=== PATIENT | male | born 1955 | race American Indian/Alaskan Native ===

== ENCOUNTER 2017-12-11 14:22 | Emergency (ER) | payer MEDICARE ==
[2017-12-11 14:25] VITALS: BP 124/59; PULSE 102; RESP 20; TEMP 99; O2SAT 100
--- NOTE | 2017-12-11 16:44 | ED PDOC ---
HPI: General Adult Time Seen by Provider: 12/11/17 15:55 Chief Complaint (Nursing): Dizziness/Lightheaded Chief Complaint (Provider): Medical evaluation History Per: Patient Additional Complaint(s): 62yo male, comes to ER stating he has no medical complaints. Patient is requesting water to take his medication with, and wants the lights in his room turned off so he can sleep. Patient admits he was just discharged from [facility]. Contrary to triage note, patient denies any dizziness and offers no medical complaints. Past Medical History Reviewed: Historical Data, Nursing Documentation, Vital Signs Vital Signs: Last Vital Signs Temp 99 F 12/11/17 14:24 Pulse 102 H 12/11/17 14:24 Resp 20 12/11/17 14:24 BP 124/59 L 12/11/17 14:24 Pulse Ox 100 12/11/17 17:20 - Medical History PMH: HTN, Hypercholesterolemia - Surgical History Surgical History: No Surg Hx - Family History Family History: States: No Known Family Hx - Immunization History Hx Tetanus Toxoid Vaccination: No - Home Medications Home Medications: Ambulatory Orders Medication Instructions Recorded Aspirin 81 mg PO DAILY 12/09/17 Lisinopril/Hydrochlorothiazide 1 tab PO DAILY 12/09/17 [Lisinopril-Hctz 20-25 mg Tab] Meclizine [Meclizine*] 1 tab PO Q8 12/09/17 Simvastatin 20 mg PO DAILY 12/09/17 Tamsulosin [Flomax] 0.4 mg PO DAILY 12/09/17 - Allergies Allergies/Adverse Reactions: Allergies Allergy/AdvReac Type Severity Reaction Status Date / Time No Known Allergies Allergy Verified 12/12/17 22:08 Review of Systems ROS Statement: Except As Marked, All Systems Reviewed And Found Negative Physical Exam - Reviewed Nursing Documentation Reviewed: Yes Vital Signs Reviewed: Yes - Physical Exam Appears: Positive for: No Acute Distress Head Exam: Positive for: ATRAUMATIC, NORMAL INSPECTION, NORMOCEPHALIC Skin: Positive for: Normal Color Eye Exam: Positive for: Normal appearance Neck: Positive for: Supple Cardiovascular/Chest: Positive for: Regular Rate, Rhythm Respiratory: Positive for: Normal Breath Sounds Extremity: Positive for: Normal ROM Neurologic/Psych: Positive for: Alert, Oriented. Negative for: Motor/Sensory Deficits - ECG O2 Sat by Pulse Oximetry: 100 (RA) Pulse Ox Interpretation: Normal Medical Decision Making Medical Decision Making: Impression: Medical evaluation Plan: Medical exam is normal and aptient currently has no medical conditions which need further evaluation or management in ER. Patient's prior visit reviewed and he was seen at [facility] 2 days ago where he was reported to be "looking for a place to stay." Per prior chart, patient also frequents [facility] [place] bed seeking behavior. Patient given food tray while in ER. Time: 1719 Patient reports he finished his food and is "content and satisfied." On reassessment, patient remains alert and oriented x 3 and is in no acute distress ; he offers no medical complaints. Scribe Attestation: Documented by Chelsey Salvador, acting as a scribe for Nat Weeks MD. Provider Scribe Attestation: All medical record entries made by the Scribe were at my direction and personally dictated by me. I have reviewed the chart and agree that the record accurately reflects my personal performance of the history, physical exam, medical decision making, and the department course for this patient. I have also personally directed, reviewed, and agree with the discharge instructions and disposition. Disposition - Clinical Impression Clinical Impression: Dizziness, Homeless - Patient ED Disposition Is Patient to be Admitted: No Counseled Patient/Family Regarding: Studies Performed, Diagnosis, Need For Followup - Disposition Referrals: [facility] [Outside] Disposition: Routine/Home Disposition Time: 16:30 Condition: GOOD Additional Instructions: GERALDINE RADER, thank you for letting us take care of you today. Your provider was Nat Weeks MD and you were treated for DIZZINESS. The emergency medical care you received today was directed at your acute symptoms. If you were prescribed any medication, please fill it and take as directed. It may take several days for your symptoms to resolve. Return to the Emergency Department if your symptoms worsen, do not improve, or if you have any other problems. Please contact your doctor or call one of the physicians/clinics you have been referred to that are listed on the Patient Visit Information form that is included in your discharge packet. Bring any paperwork you were given at discharge with you along with any medications you are taking to your follow up visit. Our treatment cannot replace ongoing medical care by a primary care provider outside of the emergency department. Thank you for allowing the [facility] team to be part of your care today. If you had an X-Ray or CT scan: A Radiologist will review the ED reading if any change in treatment is needed we will contact you. If you had a blood, urine, or wound culture: It will take several days for the results, if any change in treatment is needed we will contact you. If you had an STI test: It will take 48 hours for the results. Please call after 1 week if you have not heard back.
== END 2017-12-11 18:02 | disposition home or self-care (01) ==
LOC: H.ER 14:22
DX: R42 Dizziness and giddiness (principal); Z59.0 Homelessness; E78.00 Pure hypercholesterolemia, unspecified; I10 Essential (primary) hypertension

== ENCOUNTER 2017-12-12 22:04 | Emergency (ER) | payer MEDICARE ==
[2017-12-12 22:10] VITALS: BP 121/61; PULSE 84; RESP 18; TEMP 98.1; O2SAT 100
--- NOTE | 2017-12-12 22:49 | ED PDOC ---
Lower Extremity Pain/Injury Time Seen by Provider: 12/12/17 22:18 Chief Complaint (Nursing): Lower Extremity Problem/Injury Chief Complaint (Provider): Malingering History Per: Patient History/Exam Limitations: no limitations Additional Complaint(s): 62 year old male presents to the ED looking for somewhere to sleep. He told triage that he has chronic leg pain, however when asked about it in the room, he states they are not bothering him anymore. As review of previous charts, he was seen in [facility] and [facility] yesterday for malingering as well. At this time, he has no complaints and is requesting for the lights to be turned off so he can sleep. PMD: none provided Past Medical History Reviewed: Historical Data, Nursing Documentation, Vital Signs Vital Signs: Last Vital Signs Temp 98.1 F 12/12/17 22:08 Pulse 84 12/12/17 22:08 Resp 18 12/12/17 22:08 BP 121/61 12/12/17 22:08 Pulse Ox 100 12/12/17 22:08 - Medical History PMH: HTN, Hypercholesterolemia - Family History Family History: States: Unknown Family Hx - Living Arrangements Living Arrangements: Other (homeless) - Home Medications Home Medications: Ambulatory Orders Medication Instructions Recorded Aspirin 81 mg PO DAILY 12/09/17 Lisinopril/Hydrochlorothiazide 1 tab PO DAILY 12/09/17 [Lisinopril-Hctz 20-25 mg Tab] Meclizine [Meclizine*] 1 tab PO Q8 12/09/17 Simvastatin 20 mg PO DAILY 12/09/17 Tamsulosin [Flomax] 0.4 mg PO DAILY 12/09/17 - Allergies Allergies/Adverse Reactions: Allergies Allergy/AdvReac Type Severity Reaction Status Date / Time No Known Allergies Allergy Verified 12/13/17 16:07 Review of Systems ROS Statement: Except As Marked, All Systems Reviewed And Found Negative Musculoskeletal: Negative for: Leg Pain Physical Exam - Reviewed Nursing Documentation Reviewed: Yes Vital Signs Reviewed: Yes - Physical Exam Comments: GENERAL APPEARANCE: Patient is awake, alert, oriented x 3, in no acute distress. NECK: Supple, FROM ENT: Mucus membranes moist. Airway patent, (-)stridor. CHEST AND RESPIRATORY: (-) rales, (-) rhonchi, (-) wheezes; breath sounds equal bilaterally. HEART AND CARDIOVASCULAR: (-) irregularity NEURO AND PSYCH: Mental status as above. Cranial nerves grossly intact. Gait: steady. Speech: clear. - ECG O2 Sat by Pulse Oximetry: 100 (RA) Pulse Ox Interpretation: Normal Medical Decision Making Medical Decision Making: Time: 2246 Initial Impression: malingering Initial Plan: --At this time, patient is stable for discharge as and outpatient to follow up at the [facility]. He requires no emergent medical care at this time. Return to the emergency room at any time for any new or worsening symptoms. I have given the patient opportunity to ask any additional questions. Scribe Attestation: Documented by Alyson Herrera, acting as a scribe for Annamarie Lees PA-C. Provider Scribe Attestation: All medical record entries made by the Scribe were at my direction and personally dictated by me. I have reviewed the chart and agree that the record accurately reflects my personal performance of the history, physical exam, medical decision making, and the department course for this patient. I have also personally directed, reviewed, and agree with the discharge instructions and disposition. Disposition - Clinical Impression Clinical Impression: Malingering - Patient ED Disposition Is Patient to be Admitted: No Counseled Patient/Family Regarding: Studies Performed, Diagnosis, Need For Followup - Disposition Referrals: [facility] [Outside] Disposition: Routine/Home Disposition Time: 22:47 Condition: STABLE Additional Instructions: The emergency medical care you received today was directed towards the acute presenting symptoms. If you were prescribed any medication, please fill it and give as directed. It may take several days for your symptoms to resolve. Return to the Emergency Department at any time if symptoms worsen, do not improve, or if any other problems arise. Please contact your doctor in 2 days for re-evaluation and follow up / or call one of the physicians/clinics you have been referred to that are listed on the Patient Visit Information form that is included in your discharge packet. Bring any paperwork you were given at discharge with you along with any medications to your follow up visit. Our treatment cannot replace ongoing medical care by a primary care provider (PCP) outside of the emergency department. Instructions: General (DC) Forms: [employer] (Tuvaluan) Print Language: KAZAKH - POA Present On Arrival: None
== END 2017-12-12 23:00 | disposition home or self-care (01) ==
LOC: H.ER 22:04
DX: Z76.5 Malingerer [conscious simulation] (principal)

== ENCOUNTER → 2018-01-30 | Emergency (ER) | payer MEDICARE ==
[2018-01-30 19:01] VITALS: BMI 23.7
[2018-01-30 19:11] VITALS: BP 120/95; PULSE 107; RESP 18; TEMP 98; O2SAT 98
--- NOTE | 2018-01-30 19:39 | ED PDOC ---
Lower Extremity Pain/Injury Time Seen by Provider: 01/30/18 19:33 Chief Complaint (Nursing): Lower Extremity Problem/Injury Past Medical History Vital Signs: Last Vital Signs Temp 98 F 01/30/18 19:08 Pulse 107 H 01/30/18 19:08 Resp 18 01/30/18 19:08 BP 120/95 H 01/30/18 19:08 Pulse Ox 98 01/30/18 19:08 - Medical History PMH: Anxiety, Arthritis, Bipolar Disorder, Dementia, HTN, Hypercholesterolemia Denies: Diabetes, Hepatitis, HIV, Seizures, Sexually Transmitted Disease - Family History Family History: States: Unknown Family Hx - Immunization History Hx Tetanus Toxoid Vaccination: No Hx Influenza Vaccination: No Hx Pneumococcal Vaccination: No - Home Medications Home Medications: Ambulatory Orders Medication Instructions Recorded Aspirin [Ecotrin] 81 mg PO DAILY 12/25/17 Cilostazol [Pletal] 100 mg PO BID 12/25/17 Lisinopril/Hydrochlorothiazide 1 each PO DAILY 12/25/17 [Lisinopril-Hctz 20-25 mg Tab] Meclizine [Meclizine*] 25 mg PO Q6 #30 tab 12/25/17 risperiDONE [RisperDAL] 0.5 mg PO DAILY 12/25/17 Lidocaine 5% [Lidoderm] 1 ea TD DAILY PRN #12 patch 12/26/17 Ibuprofen [Motrin] 600 mg PO Q6 5 Days #20 tab 01/27/18 - Allergies Allergies/Adverse Reactions: Allergies Allergy/AdvReac Type Severity Reaction Status Date / Time No Known Allergies Allergy Verified 01/30/18 19:07 - ECG O2 Sat by Pulse Oximetry: 98 Disposition - Clinical Impression Clinical Impression: Homeless single person, Malingering, Chronic pain of right hip - Disposition Condition: STABLE Instructions: Chronic Pain Forms: [employer] (Indonesian)
--- NOTE | 2018-01-30 19:54 | ED PDOC ---
Lower Extremity Pain/Injury Time Seen by Provider: 01/30/18 19:10 Chief Complaint (Nursing): Lower Extremity Problem/Injury Chief Complaint (Provider): Lower Extremity Problem/Injury History Per: Patient History/Exam Limitations: no limitations Onset/Duration Of Symptoms: Days (1x) Current Symptoms Are (Timing): Still Present Severity: Moderate Additional Complaint(s): 62 year old male, well known to the ED, with a past medical history of chronic right thigh pain presents to the ED with complaints right thigh pain that started today. Patient has been seen in the ED multiple times for this complaint. Patient denies any new pain or trauma to the area. Patient states he needs to lay down to take him pain medication (cilostazol, for chronic pain). PMD: None provided Past Medical History Reviewed: Historical Data, Nursing Documentation, Vital Signs Vital Signs: Last Vital Signs Temp 98 F 01/30/18 19:08 Pulse 107 H 01/30/18 19:08 Resp 18 01/30/18 19:08 BP 120/95 H 01/30/18 19:08 Pulse Ox 98 01/30/18 19:08 - Medical History PMH: Anxiety, Arthritis, Bipolar Disorder, Dementia, HTN, Hypercholesterolemia Denies: Diabetes, Hepatitis, HIV, Seizures, Sexually Transmitted Disease - Family History Family History: States: Unknown Family Hx - Social History Alcohol: None Drugs: Denies - Immunization History Hx Tetanus Toxoid Vaccination: No Hx Influenza Vaccination: No Hx Pneumococcal Vaccination: No - Home Medications Home Medications: Ambulatory Orders Medication Instructions Recorded Aspirin [Ecotrin] 81 mg PO DAILY 12/25/17 Cilostazol [Pletal] 100 mg PO BID 12/25/17 Lisinopril/Hydrochlorothiazide 1 each PO DAILY 12/25/17 [Lisinopril-Hctz 20-25 mg Tab] Meclizine [Meclizine*] 25 mg PO Q6 #30 tab 12/25/17 risperiDONE [RisperDAL] 0.5 mg PO DAILY 12/25/17 Lidocaine 5% [Lidoderm] 1 ea TD DAILY PRN #12 patch 12/26/17 Ibuprofen [Motrin] 600 mg PO Q6 5 Days #20 tab 01/27/18 - Allergies Allergies/Adverse Reactions: Allergies Allergy/AdvReac Type Severity Reaction Status Date / Time No Known Allergies Allergy Verified 01/30/18 19:07 Review of Systems ROS Statement: Except As Marked, All Systems Reviewed And Found Negative Musculoskeletal: Positive for: Leg Pain (right thigh pain) Physical Exam - Reviewed Nursing Documentation Reviewed: Yes Vital Signs Reviewed: Yes - Physical Exam Appears: Positive for: Well, Non-toxic, No Acute Distress Head Exam: Positive for: ATRAUMATIC, NORMOCEPHALIC Skin: Positive for: Normal Color Cardiovascular/Chest: Positive for: Regular Rate, Rhythm Respiratory: Positive for: Normal Breath Sounds Pulses-Dorsalis Pedis (L): 2+ Pulses-Dorsalis Pedis (R): 2+ Extremity: Positive for: Normal ROM, Other (DP pulses in tact) Neurologic/Psych: Positive for: Alert, Oriented (3x), Gait (patient was seen ambulating with steady gait) - ECG O2 Sat by Pulse Oximetry: 98 (RA) Pulse Ox Interpretation: Normal Medical Decision Making Medical Decision Makin:10 Initial impression: 62 year old male with right upper leg pain Plan: * reevaluation 19:20 Patient is sleeping comfortably, in no acute distress. Patient is declining additional pain medications in ED. Scribe Attestation: Documented by Annamarie Tian, acting as a scribe for Miladys Ziegler PA-C. Provider Scribe Attestation: All medical record entries made by the Scribe were at my direction and personally dictated by me. I have reviewed the chart and agree that the record accurately reflects my personal performance of the history, physical exam, medical decision making, and the department course for this patient. I have also personally directed, reviewed, and agree with the discharge instructions and disposition. Disposition - Clinical Impression Clinical Impression: Homeless single person, Malingering, Chronic pain of right hip - Patient ED Disposition Is Patient to be Admitted: No - Disposition Disposition: Routine/Home Disposition Time: 19:37 Condition: STABLE Instructions: Chronic Pain Forms: [employer] (Venezuelan)
== END | disposition home or self-care (01) ==
LOC: H.ER 19:01
DX: Z76.5 Malingerer [conscious simulation] (principal); Z59.0 Homelessness; G89.29 Other chronic pain

== ENCOUNTER 2018-01-31 00:56 | Emergency (ER) | payer MEDICARE ==
[2018-01-31 00:56] VITALS: BMI 32.5
[2018-01-31 02:34] VITALS: RESP 16
--- NOTE | 2018-01-31 05:21 | ED PDOC ---
HPI: General Adult Time Seen by Provider: 01/31/18 04:57 Chief Complaint (Nursing): Medical Clearance Chief Complaint (Provider): Chronic Pain History Per: Patient History/Exam Limitations: no limitations Onset/Duration Of Symptoms: Days Recently: Seen In ED Additional Complaint(s): Patient is a 62 year old homeless male who presents to ED for evaluation of chronic pain to his hips and knees. Patient reports that the cold weather outside worsens his symptoms and that "he needs somewhere to sleep". Patient is well known to ED for frequent visits and bed seeking behavior. Patient was evaluated in this ED earlier today for similar and discharged. Past Medical History Reviewed: Historical Data, Nursing Documentation, Vital Signs Vital Signs: Last Vital Signs Temp 98.9 F 01/31/18 02:20 Pulse 89 01/31/18 02:20 Resp 16 01/31/18 02:20 BP 130/90 01/31/18 02:20 Pulse Ox 99 01/31/18 02:20 - Medical History PMH: Anxiety, Arthritis, Bipolar Disorder, Dementia, HTN, Hypercholesterolemia - Family History Family History: States: Unknown Family Hx - Living Arrangements Living Arrangements: Other (homeless) - Home Medications Home Medications: Ambulatory Orders Medication Instructions Recorded Aspirin [Ecotrin] 81 mg PO DAILY 12/25/17 Cilostazol [Pletal] 100 mg PO BID 12/25/17 Lisinopril/Hydrochlorothiazide 1 each PO DAILY 12/25/17 [Lisinopril-Hctz 20-25 mg Tab] RX: Meclizine [Meclizine*] 25 mg PO Q6 #30 tab 12/25/17 risperiDONE [RisperDAL] 0.5 mg PO DAILY 12/25/17 Lidocaine 5% [Lidoderm] 1 ea TD DAILY PRN #12 patch 12/26/17 Ibuprofen [Motrin] 600 mg PO Q6 5 Days #20 tab 01/27/18 Ibuprofen [Motrin] 1 tab PO Q8 PRN #20 tab 01/31/18 - Allergies Allergies/Adverse Reactions: Allergies Allergy/AdvReac Type Severity Reaction Status Date / Time No Known Allergies Allergy Verified 01/31/18 15:53 Review of Systems ROS Statement: Except As Marked, All Systems Reviewed And Found Negative Musculoskeletal: Positive for: Other (chronic pain) Physical Exam - Reviewed Nursing Documentation Reviewed: Yes Vital Signs Reviewed: Yes - Physical Exam Appears: Positive for: Non-toxic, No Acute Distress Head Exam: Positive for: ATRAUMATIC, NORMOCEPHALIC Skin: Positive for: Normal Color Eye Exam: Positive for: Normal appearance ENT: Positive for: Other (Airway patent, (-) stridor. Mucus membranes moist.) Neck: Positive for: Painless ROM, Supple Cardiovascular/Chest: Positive for: Regular Rate, Rhythm Respiratory: Positive for: Normal Breath Sounds Gastrointestinal/Abdominal: Positive for: Soft. Negative for: Tenderness, Distended, Guarding Extremity: Positive for: Normal ROM. Negative for: Tenderness, Pedal Edema, Calf Tenderness, Deformity, Swelling Neurologic/Psych: Positive for: Alert, Oriented (x3), Gait (steady in ED). Negative for: Motor/Sensory Deficits, Aphasia, Facial Droop - ECG O2 Sat by Pulse Oximetry: 99 (RA) Pulse Ox Interpretation: Normal Medical Decision Making Medical Decision Makin Initial Impression: Chronic Pain, Malingering Plan: Patient is stable for discharge as no additional treatment or testing is required in the ED at this time. Lab /Diagnostic results d/w the patient in great detail. Diagnosis of chronic pain, malingering d/w the patient. Based on history, exam and diagnostic results, plan will be for outpatient follow up with clinic. Patient instructed to follow-up with pmd / referral provided / the clinic in 1- 2 days without fail. Return to the emergency room at any time for any new or worsening symptoms. Patient states he fully agrees with and understands discharge instructions. States that he agrees with the plan and disposition. Verbalized and repeated discharge instructions and plan. I have given the patient opportunity to ask any additional questions. Disposition - Clinical Impression Clinical Impression: Chronic pain, Malingering - Patient ED Disposition Is Patient to be Admitted: No Counseled Patient/Family Regarding: Studies Performed, Diagnosis, Need For Followup - Disposition Referrals: [facility] [Outside] Disposition: Routine/Home Disposition Time: 05:20 Condition: FAIR Additional Instructions: The emergency medical care you received today was directed towards the acute presenting symptoms. If you were prescribed any medication, please fill it and give as directed. It may take several days for your symptoms to resolve. Return to the Emergency Department at any time if symptoms worsen, do not improve, or if any other problems arise. Please contact your doctor in 2 days for re-evaluation and follow up / or call one of the physicians/clinics you have been referred to that are listed on the Patient Visit Information form that is included in your discharge packet. Bring any paperwork you were given at discharge with you along with any medications to your follow up visit. Our treatment cannot replace ongoing medical care by a primary care provider (PCP) outside of the emergency department. Instructions: Chronic Pain, General (DC) Forms: [employer] (Sinhala) Print Language: GUATEMALAN - POA Present On Arrival: None
[2018-01-31 07:33] VITALS: BP 122/84; PULSE 81; TEMP 98.4
[2018-02-01 04:43] VITALS: O2SAT 99
== END 2018-01-31 06:20 | disposition home or self-care (01) ==
LOC: H.ER 00:56
DX: G89.29 Other chronic pain (principal); Z76.5 Malingerer [conscious simulation]; Z86.59 Personal history of other mental and behavioral disorders; F03.90 Unspecified dementia, unspecified severity, without behavioral disturbance, psychotic disturbance, mood disturbance, and anxiety; I10 Essential (primary) hypertension; Z59.0 Homelessness; Z79.82 Long term (current) use of aspirin

== ENCOUNTER 2018-02-15 20:41 | Emergency (ER) | payer MEDICARE ==
[2018-02-15 20:42] VITALS: BMI 27.3
[2018-02-15 20:53] VITALS: BP 159/86; PULSE 88; RESP 16; TEMP 97.2; O2SAT 96
--- NOTE | 2018-02-15 21:04 | ED PDOC ---
Lower Extremity Pain/Injury Time Seen by Provider: 02/15/18 21:01 Chief Complaint (Nursing): Lower Extremity Problem/Injury Chief Complaint (Provider): Lower Extremity Problem/Injury History Per: Patient History/Exam Limitations: other (uncooperative) Onset/Duration Of Symptoms: Other (chronic ) Additional Complaint(s): 62 year old homeless male with a history of chronic right sided leg pain and back pain presents to the ED via EMS c/o right leg pain and asking for food. He is well known to this ED as well as [facility]. Pt was seen 4 times yesterday with the same complaints. As per EMS, he was picked up outside of the [facility] ED and requested to come here. Patient is also wearing a hospital bracelet from [facility] with today's date. Patient states that leg pain is unchanged from chronic symptoms and is requesting to lie down in a bed and eat some food. Denies fevers, chills, abdominal pain, chest pain, SOB, cough. HPI and ROS is limited secondary to the uncooperative nature of the patient. PMD: none provided Past Medical History Reviewed: Historical Data, Nursing Documentation, Vital Signs Vital Signs: Last Vital Signs Temp 97.2 F L 02/15/18 20:47 Pulse 88 02/15/18 20:47 Resp 16 02/15/18 20:47 BP 159/86 H 02/15/18 20:47 Pulse Ox 96 02/15/18 20:47 - Medical History PMH: Anxiety, Arthritis, Benign Prostatic Hyperplasia, Bipolar Disorder, Dementia, HTN, Hypercholesterolemia Denies: Diabetes, Hepatitis, HIV, Chronic Kidney Disease, Seizures, Sexually Transmitted Disease - Surgical History Surgical History: No Surg Hx - Family History Family History: States: Unknown Family Hx - Immunization History Hx Tetanus Toxoid Vaccination: No Hx Influenza Vaccination: No Hx Pneumococcal Vaccination: No - Home Medications Home Medications: Ambulatory Orders Medication Instructions Recorded Aspirin [Ecotrin] 81 mg PO DAILY 12/25/17 Cilostazol [Pletal] 100 mg PO BID 12/25/17 Lisinopril/Hydrochlorothiazide 1 each PO DAILY 12/25/17 [Lisinopril-Hctz 20-25 mg Tab] Meclizine [Meclizine*] 25 mg PO Q6 #30 tab 12/25/17 risperiDONE [RisperDAL] 0.5 mg PO DAILY 12/25/17 Lidocaine 5% [Lidoderm] 1 ea TD DAILY PRN #12 patch 12/26/17 Ibuprofen [Motrin] 600 mg PO Q6 5 Days #20 tab 01/27/18 Naproxen [Naprosyn] 500 mg PO Q12H PRN #30 tablet 02/05/18 Acetaminophen [Tylenol] 325 mg PO QID 5 Days #20 capsule 02/07/18 - Allergies Allergies/Adverse Reactions: Allergies Allergy/AdvReac Type Severity Reaction Status Date / Time No Known Allergies Allergy Verified 02/15/18 15:38 Review of Systems ROS Statement: Except As Marked, All Systems Reviewed And Found Negative Musculoskeletal: Positive for: Leg Pain (chronic right leg pain) Physical Exam - Reviewed Nursing Documentation Reviewed: Yes Vital Signs Reviewed: Yes - Physical Exam Appears: Positive for: Non-toxic, No Acute Distress (unkempt and uncooperative) Head Exam: Positive for: ATRAUMATIC, NORMAL INSPECTION, NORMOCEPHALIC Skin: Positive for: Normal Color, Warm, Dry Eye Exam: Positive for: EOMI, Normal appearance, PERRL Neck: Positive for: Normal, Painless ROM, Supple Cardiovascular/Chest: Positive for: Regular Rate, Rhythm Respiratory: Positive for: CNT, Normal Breath Sounds Pulses-Dorsalis Pedis (L): 2+ Pulses-Dorsalis Pedis (R): 2+ Pulses-Radial (L): 2+ Pulses-Radial (R): 2+ Back: Positive for: Normal Inspection. Negative for: Vertebral Tenderness, Decreased ROM, Muscle Spasm Extremity: Positive for: Normal ROM (x 4), Capillary Refill (<2s), Other (ambulating per baseline). Negative for: Tenderness, Calf Tenderness, Deformity Neurologic/Psych: Positive for: Alert, Oriented, Gait (per baseline). Negative for: Motor/Sensory Deficits - ECG O2 Sat by Pulse Oximetry: 96 (RA) Pulse Ox Interpretation: Normal Medical Decision Making Medical Decision Making: Initial Plan: * Food * Reassess and disposition After eating, patient has no further complaints. Pt remains A&Ox3, ambulating with steady gait per baseline. Pt stable for discharge. Advised to followup with clinic and take home medications as prescribed. Impression: Homeless, Chronic Right Leg Pain Disposition - Clinical Impression Clinical Impression: Homeless single person, Chronic pain of right lower extremity - Patient ED Disposition Is Patient to be Admitted: No - Disposition Referrals: [facility] [Outside] Disposition: Routine/Home Disposition Time: 21:17 Condition: STABLE Additional Instructions: Followup with clinic within 2 days Return to ER for new/worsening symptoms Forms: [employer] (Barbadian)
== END 2018-02-15 21:30 | disposition home or self-care (01) ==
LOC: H.ER 20:41
DX: M79.604 Pain in right leg (principal); Z59.0 Homelessness; E78.00 Pure hypercholesterolemia, unspecified; F03.90 Unspecified dementia, unspecified severity, without behavioral disturbance, psychotic disturbance, mood disturbance, and anxiety; G89.29 Other chronic pain; Z79.82 Long term (current) use of aspirin

== ENCOUNTER 2018-03-23 11:05 | Emergency (ER) | payer MEDICARE, MEDICAID ==
[2018-03-23 11:05] VITALS: BMI 24.4
[2018-03-23 11:10] VITALS: BP 158/89; PULSE 82; RESP 20; TEMP 97.6; O2SAT 100
--- NOTE | 2018-03-23 11:49 | ED PDOC ---
Lower Extremity Pain/Injury Time Seen by Provider: 03/23/18 11:30 Chief Complaint (Nursing): Lower Extremity Problem/Injury Chief Complaint (Provider): Lower Extremity Problem/Injury History Per: Patient, EMS History/Exam Limitations: no limitations Onset/Duration Of Symptoms: Days (x 1) Current Symptoms Are (Timing): Still Present Additional Complaint(s): 62 year old male presents to the ED with left hip and leg pain. Patient is known for multiple visits to this ED and other [facility]. EMR reviews shows that he visited [facility] this morning with the same complaint as well as 6 other visits to [facility] in the last 24 hours. The patrient admits that he walked into the ER. He is refusing to answer questions and is only stating "Can I get food now?" He also requested a urinal which he was then given before asking if he can have food again. Patient walked into the ER steadily with a cane. Denies fall, trauma and fever. PMD: none provided Past Medical History Reviewed: Historical Data, Nursing Documentation, Vital Signs Vital Signs: Last Vital Signs Temp 97.6 F 03/23/18 11:09 Pulse 82 03/23/18 11:09 Resp 20 03/23/18 11:09 BP 158/89 H 03/23/18 11:09 Pulse Ox 100 03/23/18 11:09 - Medical History PMH: Anxiety, Arthritis, Benign Prostatic Hyperplasia, Bipolar Disorder, Dementia, HTN, Hypercholesterolemia Denies: HIV, Chronic Kidney Disease, Seizures, Sexually Transmitted Disease - Surgical History Surgical History: No Surg Hx - Family History Family History: States: Unknown Family Hx - Living Arrangements Living Arrangements: Other (homeless) - Immunization History Hx Tetanus Toxoid Vaccination: No Hx Influenza Vaccination: No Hx Pneumococcal Vaccination: No - Home Medications Home Medications: Ambulatory Orders Medication Instructions Recorded Aspirin [Ecotrin] 81 mg PO DAILY 12/25/17 Cilostazol [Pletal] 100 mg PO Q12 12/25/17 Lisinopril/Hydrochlorothiazide 1 tab PO DAILY 12/25/17 [Lisinopril-Hctz 20-25 mg Tab] risperiDONE [RisperDAL] 0.5 mg PO HS 12/25/17 Naproxen [Naprosyn] 500 mg PO Q12H PRN #30 tablet 02/05/18 Acetaminophen [Tylenol] 325 mg PO QID 5 Days #20 capsule 02/07/18 Simvastatin [Zocor] 20 mg PO HS 02/17/18 Tamsulosin [Flomax] 0.4 mg PO HS 02/17/18 Ibuprofen [Motrin] 400 mg PO Q8 PRN #21 tab 02/20/18 - Allergies Allergies/Adverse Reactions: Allergies Allergy/AdvReac Type Severity Reaction Status Date / Time No Known Allergies Allergy Verified 03/23/18 07:03 Review of Systems ROS Statement: Except As Marked, All Systems Reviewed And Found Negative Musculoskeletal: Positive for: Leg Pain (left leg pain and hip pain) Physical Exam - Reviewed Nursing Documentation Reviewed: Yes Vital Signs Reviewed: Yes - Physical Exam Appears: Positive for: No Acute Distress (appears disheveled) Head Exam: Positive for: ATRAUMATIC, NORMAL INSPECTION, NORMOCEPHALIC Skin: Positive for: Normal Color, Warm, Dry Eye Exam: Positive for: Normal appearance Cardiovascular/Chest: Positive for: Regular Rate, Rhythm. Negative for: Murmur Respiratory: Positive for: Normal Breath Sounds. Negative for: Respiratory Distress Neurologic/Psych: Positive for: Alert, Oriented, Gait (steady). Negative for: Motor/Sensory Deficits - ECG O2 Sat by Pulse Oximetry: 100 (RA) Pulse Ox Interpretation: Normal Medical Decision Making Medical Decision Makin:30 MDM: Patient has chronic arthritis No evidence of trauma or other indication for medical workup He was seen ambulatory on arrival per triage note. Scribe Attestation: Documented by Erica Yaens acting as a scribe for Annamarie Gama MD Provider Scribe Attestation: All medical record entries made by the Scribe were at my direction and personally dictated by me. I have reviewed the chart and agree that the record accurately reflects my personal performance of the history, physical exam, medical decision making, and the department course for this patient. I have also personally directed, reviewed, and agree with the discharge instructions and disposition. Disposition - Clinical Impression Clinical Impression: Chronic hip pain, Malingerer, Homeless - Patient ED Disposition Is Patient to be Admitted: No - Disposition Disposition: Routine/Home Disposition Time: 11:45 Additional Instructions: follow up with primary doctor for fci pain control. Instructions: Chronic Pain, Hip Pain (DC) Forms: [employer] (Bulgarian) Print Language: IRAQI
== END 2018-03-23 13:18 | disposition home or self-care (01) ==
LOC: H.ER 11:05
DX: G89.29 Other chronic pain (principal); M25.552 Pain in left hip; Z76.5 Malingerer [conscious simulation]; Z59.0 Homelessness; Z86.59 Personal history of other mental and behavioral disorders; F03.90 Unspecified dementia, unspecified severity, without behavioral disturbance, psychotic disturbance, mood disturbance, and anxiety; I10 Essential (primary) hypertension; N40.0 Benign prostatic hyperplasia without lower urinary tract symptoms

== ENCOUNTER 2018-03-23 14:03 | Emergency (ER) | payer MEDICARE, MEDICAID ==
[2018-03-23 14:07] VITALS: BMI 27.5
--- NOTE | 2018-03-23 14:10 | ED PDOC ---
HPI: General Adult Time Seen by Provider: 03/23/18 14:05 Chief Complaint (Nursing): Pain, Chronic Chief Complaint (Provider): Chronic Pain History Per: Patient History/Exam Limitations: no limitations Recently: Seen In ED (earlier today at [facility], seen at [facility] 3x yesterday for same complaint.) Additional Complaint(s): 62 year old homeless male well known to the ED staff for malingering presents to the ED with complaints of chronic bilateral leg pain. He was discharged from this ED 1 hour ago for exhibiting bed seeking behavior. Patient ambulates steadily in the ED with a cane. Patient states " I got no where to go, I need a place to lay down. I need food". Patient refused vitals in triage and is uncooperative upon arrival. Past Medical History Reviewed: Historical Data, Nursing Documentation - Medical History PMH: Anxiety, Arthritis, Benign Prostatic Hyperplasia, Bipolar Disorder, Dementia, HTN, Hypercholesterolemia - Surgical History Other surgeries: unknown - Family History Family History: States: Unknown Family Hx - Living Arrangements Living Arrangements: Other (homeless) - Home Medications Home Medications: Ambulatory Orders Medication Instructions Recorded Aspirin [Ecotrin] 81 mg PO DAILY 12/25/17 Cilostazol [Pletal] 100 mg PO Q12 12/25/17 Lisinopril/Hydrochlorothiazide 1 tab PO DAILY 12/25/17 [Lisinopril-Hctz 20-25 mg Tab] risperiDONE [RisperDAL] 0.5 mg PO HS 12/25/17 RX: Naproxen [Naprosyn] 500 mg PO Q12H PRN #30 tablet 02/05/18 Acetaminophen [Tylenol] 325 mg PO QID 5 Days #20 capsule 02/07/18 RX: Simvastatin [Zocor] 20 mg PO HS 02/17/18 Tamsulosin [Flomax] 0.4 mg PO HS 02/17/18 Ibuprofen [Motrin] 400 mg PO Q8 PRN #21 tab 02/20/18 - Allergies Allergies/Adverse Reactions: Allergies Allergy/AdvReac Type Severity Reaction Status Date / Time No Known Allergies Allergy Verified 03/23/18 07:03 Review of Systems ROS Statement: Except As Marked, All Systems Reviewed And Found Negative Musculoskeletal: Positive for: Leg Pain Physical Exam - Reviewed Nursing Documentation Reviewed: Yes Vital Signs Reviewed: No (patient refused vitals) - Physical Exam Appears: Positive for: Non-toxic, No Acute Distress Head Exam: Positive for: ATRAUMATIC, NORMAL INSPECTION, NORMOCEPHALIC Skin: Positive for: Normal Color, Warm, Dry Eye Exam: Positive for: Normal appearance Neck: Positive for: Supple Extremity: Negative for: Calf Tenderness, Deformity Neurologic/Psych: Positive for: Alert, Oriented (x3), Gait (steady in ED with cane). Negative for: Motor/Sensory Deficits, Aphasia, Facial Droop Medical Decision Making Medical Decision Makin Impression: Malingering, Chronic Pain Patient requires no additional treatment or diagnostics in the ED. Based on history, exam and diagnostic results, plan will be for outpatient follow up with clinic. Patient instructed to follow-up with pmd / referral provided / the clinic in 1- 2 days without fail. Return to the emergency room at any time for any new or worsening symptoms. I have given the patient opportunity to ask any additional questions. Scribe Attestation: Documented by Erica Yanes acting as a scribe for Annamarie Lees PA-C Provider Scribe Attestation: All medical record entries made by the Scribe were at my direction and personally dictated by me. I have reviewed the chart and agree that the record accurately reflects my personal performance of the history, physical exam, medical decision making, and the department course for this patient. I have also personally directed, reviewed, and agree with the discharge instructions and disposition. Disposition - Clinical Impression Clinical Impression: Chronic pain, Malingering - Patient ED Disposition Is Patient to be Admitted: No Counseled Patient/Family Regarding: Studies Performed, Diagnosis, Need For Followup - Disposition Referrals: [facility] [Outside] Disposition: Routine/Home Disposition Time: 14:10 Condition: STABLE Additional Instructions: The emergency medical care you received today was directed at your acute symptoms. If you were prescribed any medication, please fill it and take as directed. It may take several days for your symptoms to resolve. Return to the Emergency Department if your symptoms worsen, do not improve, or if you have any other problems. Please contact your doctor in 2 days for re-evaluation and follow up / or call one of the physicians/clinics you have been referred to that are listed on the Patient Visit Information form that is included in your discharge packet. Bring any paperwork you were given at discharge with you along with any medications you are taking to your follow up visit. Our treatment cannot replace ongoing medical care by a primary care provider (PCP) outside of the emergency depart ment. Instructions: Chronic Pain (DC) Forms: [employer] (Estonian) Print Language: UPPER SORBIAN - POA Present On Arrival: None
== END 2018-03-23 14:15 | disposition home or self-care (01) ==
LOC: H.ER 14:03
DX: G89.29 Other chronic pain (principal); Z76.5 Malingerer [conscious simulation]; Z59.0 Homelessness; N40.0 Benign prostatic hyperplasia without lower urinary tract symptoms; I10 Essential (primary) hypertension; Z86.59 Personal history of other mental and behavioral disorders; F03.90 Unspecified dementia, unspecified severity, without behavioral disturbance, psychotic disturbance, mood disturbance, and anxiety

== ENCOUNTER 2018-03-23 14:46 | Emergency (ER) | payer MEDICARE, MEDICAID ==
--- NOTE | 2018-03-23 14:54 | ED PDOC ---
HPI: General Adult Time Seen by Provider: 03/23/18 14:49 Chief Complaint (Nursing): Pain, Chronic Chief Complaint (Provider): Chronic Pain History Per: Patient History/Exam Limitations: no limitations Recently: Seen In ED (([facility], seen at [facility] 3x yesterday for same complaint.)) Additional Complaint(s): 62 year old homeless male well known to the ED staff for malingering presents to the ED with complaints of chronic bilateral leg pain. He was discharged from this ED 1 hour ago, and 30 minutes ago for exhibiting bed seeking behavior. Patient ambulates steadily in the ED with a cane. Patient states " I got no where to go, I need a place to lay down. I need food". Patient refused vitals in triage and is uncooperative upon arrival. Past Medical History Reviewed: Historical Data, Nursing Documentation - Medical History PMH: Anxiety, Arthritis, Benign Prostatic Hyperplasia, Bipolar Disorder, Dementia, HTN, Hypercholesterolemia - Surgical History Other surgeries: unknown - Family History Family History: States: Unknown Family Hx - Living Arrangements Living Arrangements: Other (homeless) - Home Medications Home Medications: Ambulatory Orders Medication Instructions Recorded Aspirin [Ecotrin] 81 mg PO DAILY 12/25/17 Cilostazol [Pletal] 100 mg PO Q12 12/25/17 Lisinopril/Hydrochlorothiazide 1 tab PO DAILY 12/25/17 [Lisinopril-Hctz 20-25 mg Tab] risperiDONE [RisperDAL] 0.5 mg PO HS 12/25/17 Naproxen [Naprosyn] 500 mg PO Q12H PRN #30 tablet 02/05/18 Acetaminophen [Tylenol] 325 mg PO QID 5 Days #20 capsule 02/07/18 Simvastatin [Zocor] 20 mg PO HS 02/17/18 Tamsulosin [Flomax] 0.4 mg PO HS 02/17/18 Ibuprofen [Motrin] 400 mg PO Q8 PRN #21 tab 02/20/18 - Allergies Allergies/Adverse Reactions: Allergies Allergy/AdvReac Type Severity Reaction Status Date / Time No Known Allergies Allergy Verified 03/23/18 07:03 Review of Systems ROS Statement: Except As Marked, All Systems Reviewed And Found Negative Musculoskeletal: Positive for: Other (chronic leg pain) Physical Exam - Reviewed Nursing Documentation Reviewed: Yes Vital Signs Reviewed: No (patient refused) - Physical Exam Comments: Appears: Positive for: Non-toxic, No Acute Distress Head Exam: Positive for: ATRAUMATIC, NORMAL INSPECTION, NORMOCEPHALIC Skin: Positive for: Normal Color, Warm, Dry Eye Exam: Positive for: Normal appearance Neck: Positive for: Supple Extremity: Negative for: Calf Tenderness, Deformity Neurologic/Psych: Positive for: Alert, Oriented (x3), Gait (steady in ED with cane). Negative for: Motor/Sensory Deficits, Aphasia, Facial Droop Medical Decision Making Medical Decision Makin Impression: Malingering, Chronic Pain Patient requires no additional treatment or diagnostics in the ED. Based on history, exam and diagnostic results, plan will be for outpatient follow up with clinic. Patient instructed to follow-up with pmd / referral provided / the clinic in 1- 2 days without fail. Return to the emergency room at any time for any new or worsening symptoms. I have given the patient opportunity to ask any additional questions. Disposition - Clinical Impression Clinical Impression: Chronic pain - Patient ED Disposition Is Patient to be Admitted: No Counseled Patient/Family Regarding: Studies Performed, Diagnosis, Need For Followup - Disposition Referrals: [facility] [Outside] Disposition: Routine/Home Disposition Time: 14:50 Condition: STABLE Additional Instructions: The emergency medical care you received today was directed at your acute symptoms. If you were prescribed any medication, please fill it and take as directed. It may take several days for your symptoms to resolve. Return to the Emergency Department if your symptoms worsen, do not improve, or if you have any other problems. Please contact your doctor in 2 days for re-evaluation and follow up / or call one of the physicians/clinics you have been referred to that are listed on the Patient Visit Information form that is included in your discharge packet. Bring any paperwork you were given at discharge with you along with any medications you are taking to your follow up visit. Our treatment cannot replace ongoing medical care by a primary care provider (PCP) outside of the emergency department. Instructions: Chronic Pain (DC) Forms: [employer] (Mexican) Print Language: MACEDONIAN - POA Present On Arrival: None
== END 2018-03-23 15:13 | disposition home or self-care (01) ==
LOC: H.ER 14:46
DX: G89.29 Other chronic pain (principal); Z76.5 Malingerer [conscious simulation]

== ENCOUNTER 2018-03-23 15:41 | Emergency (ER) | payer MEDICARE, MEDICAID ==
--- NOTE | 2018-03-23 16:03 | ED PDOC ---
HPI: General Adult Time Seen by Provider: 03/23/18 15:44 Chief Complaint (Nursing): Medical Clearance Chief Complaint (Provider): Bilateral Leg Pain History Per: Patient History/Exam Limitations: no limitations Onset/Duration Of Symptoms: Other (several years) Current Symptoms Are (Timing): Still Present Severity: Mild Recently: Seen In ED (seen in ED 3 times today, prior to this visit) Additional Complaint(s): 62 year old homeless male well known to ED and provider presents to the ED for the fourth time today with complaints of bilateral leg pain ongoing for several years, unchanged from daily pain. Patient states that the only thing that will make him feel better is being able to lie down in a bed. PMD: None provided. Past Medical History Reviewed: Historical Data, Nursing Documentation, Vital Signs LISSETH report viewed?: Yes - Medical History PMH: Anxiety, Arthritis, Benign Prostatic Hyperplasia, Bipolar Disorder, Dementia, HTN, Hypercholesterolemia - Surgical History Other surgeries: (-) tubal ligation - Family History Family History: States: No Known Family Hx - Living Arrangements Living Arrangements: Other (homeless) - Social History Ex-Smoker (has not smoked in the last 12 months): Yes Alcohol: None (former) Drugs: Denies - Home Medications Home Medications: Ambulatory Orders Medication Instructions Recorded Aspirin [Ecotrin] 81 mg PO DAILY 12/25/17 Cilostazol [Pletal] 100 mg PO Q12 12/25/17 Lisinopril/Hydrochlorothiazide 1 tab PO DAILY 12/25/17 [Lisinopril-Hctz 20-25 mg Tab] risperiDONE [RisperDAL] 0.5 mg PO HS 12/25/17 RX: Naproxen [Naprosyn] 500 mg PO Q12H PRN #30 tablet 02/05/18 Acetaminophen [Tylenol] 325 mg PO QID 5 Days #20 capsule 02/07/18 RX: Simvastatin [Zocor] 20 mg PO HS 02/17/18 Tamsulosin [Flomax] 0.4 mg PO HS 02/17/18 Ibuprofen [Motrin] 400 mg PO Q8 PRN #21 tab 02/20/18 - Allergies Allergies/Adverse Reactions: Allergies Allergy/AdvReac Type Severity Reaction Status Date / Time No Known Allergies Allergy Verified 03/23/18 07:03 Review of Systems ROS Statement: Except As Marked, All Systems Reviewed And Found Negative Musculoskeletal: Positive for: Leg Pain (bilateral, ongoing for several years, unchanged from daily pain) Physical Exam - Reviewed Nursing Documentation Reviewed: Yes Vital Signs Reviewed: Yes - Physical Exam Appears: Positive for: Well, Non-toxic, No Acute Distress Head Exam: Positive for: ATRAUMATIC, NORMOCEPHALIC Pulses-Dorsalis Pedis (L): 2+ Pulses-Dorsalis Pedis (R): 2+ Extremity: Positive for: Normal ROM (moving both lower extremities actively). Negative for: Tenderness, Deformity, Swelling Neurologic/Psych: Positive for: Alert, Oriented (3x), Gait (steady and unassisted) Medical Decision Making Medical Decision Makin:44 Initial impression: 62 year old male malingering Plan: Patient is refusing vital signs Scribe Attestation: Documented by Annamarie Tian, acting as a scribe for Drew Simon Provider Scribe Attestation: All medical record entries made by the Scribe were at my direction and personally dictated by me. I have reviewed the chart and agree that the record accurately reflects my personal performance of the history, physical exam, medical decision making, and the department course for this patient. I have also personally directed, reviewed, and agree with the discharge instructions and disposition. Disposition - Clinical Impression Clinical Impression: Homeless single person, Malingerer - Patient ED Disposition Is Patient to be Admitted: No - Disposition Referrals: [facility] [Outside] Disposition: Routine/Home Disposition Time: 15:49 Condition: STABLE Additional Instructions: GERALDINE RADER, thank you for letting us take care of you today. Your provider was Shailesh Garcia MD and you were treated for LEG PAIN. The emergency medical care you received today was directed at your acute symptoms. If you were prescribed any medication, please fill it and take as directed. It may take several days for your symptoms to resolve. Return to the Emergency Department if your symptoms worsen, do not improve, or if you have any other problems. Please contact your doctor or call one of the physicians/clinics you have been referred to that are listed on the Patient Visit Information form that is included in your discharge packet. Bring any paperwork you were given at discharge with you along with any medications you are taking to your follow up visit. Our treatment cannot replace ongoing medical care by a primary care provider outside of the emergency department. Thank you for allowing the [facility] team to be part of your care today. If you had an X-Ray or CT scan: A Radiologist will review the ED reading if any change in treatment is needed we will contact you. If you had a blood, urine, or wound culture: It will take several days for the results, if any change in treatment is needed we will contact you. If you had an STI test: It will take 48 hours for the results. Please call after 1 week if you have not heard back. Instructions: General (DC) Forms: [employer] (Irish) Print Language: BELARUSIAN
== END 2018-03-23 15:55 | disposition home or self-care (01) ==
LOC: H.ER 15:41
DX: F03.90 Unspecified dementia, unspecified severity, without behavioral disturbance, psychotic disturbance, mood disturbance, and anxiety (principal); Z86.59 Personal history of other mental and behavioral disorders; Z76.5 Malingerer [conscious simulation]; I10 Essential (primary) hypertension; N40.0 Benign prostatic hyperplasia without lower urinary tract symptoms; Z59.0 Homelessness; Z87.891 Personal history of nicotine dependence

== ENCOUNTER 2018-04-14 22:09 | Emergency (ER) | payer MEDICAID, MEDICARE ==
[2018-04-14 22:13] VITALS: BP 138/78; PULSE 98; RESP 16; TEMP 98; O2SAT 100
== END 2018-04-14 22:55 | disposition left against medical advice (07) ==
LOC: H.ER 22:09
DX: Z02.89 Encounter for other administrative examinations (principal)

== ENCOUNTER 2018-04-15 06:02 | Emergency (ER) | payer MEDICARE ==
[2018-04-15 06:06] VITALS: BP 136/72; PULSE 83; RESP 15; TEMP 97.8; O2SAT 96
--- NOTE | 2018-04-15 06:15 | ED PDOC ---
HPI: General Adult Time Seen by Provider: 04/15/18 06:06 Chief Complaint (Nursing): Medical Clearance Chief Complaint (Provider): Medical Clearance History Per: Patient History/Exam Limitations: no limitations Onset/Duration Of Symptoms: Persistent Current Symptoms Are (Timing): Still Present Recently: Seen In ED Additional Complaint(s): 62 year old male well known to this ED for multiple visits presents to the ED with chronic leg pain. He was seen at [facility]. Patient is requesting a bed. Otherwise no new medical complaints. PMD: none provided Past Medical History Reviewed: Historical Data, Nursing Documentation, Vital Signs Vital Signs: Last Vital Signs Temp 97.8 F 04/15/18 06:03 Pulse 83 04/15/18 06:03 Resp 15 04/15/18 06:03 BP 136/72 04/15/18 06:03 Pulse Ox 96 04/15/18 06:03 - Medical History PMH: Anxiety, Arthritis, Benign Prostatic Hyperplasia, Bipolar Disorder, Dementia, HTN, Hypercholesterolemia - Surgical History Surgical History: No Surg Hx - Family History Family History: States: Unknown Family Hx - Immunization History Hx Tetanus Toxoid Vaccination: No Hx Influenza Vaccination: No Hx Pneumococcal Vaccination: No - Home Medications Home Medications: Ambulatory Orders Medication Instructions Recorded Aspirin [Ecotrin] 81 mg PO DAILY 12/25/17 Cilostazol [Pletal] 100 mg PO Q12 12/25/17 Lisinopril/Hydrochlorothiazide 1 tab PO DAILY 12/25/17 [Lisinopril-Hctz 20-25 mg Tab] risperiDONE [RisperDAL] 0.5 mg PO HS 12/25/17 Naproxen [Naprosyn] 500 mg PO Q12H PRN #30 tablet 02/05/18 Acetaminophen [Tylenol] 325 mg PO QID 5 Days #20 capsule 02/07/18 Simvastatin [Zocor] 20 mg PO HS 02/17/18 Tamsulosin [Flomax] 0.4 mg PO HS 02/17/18 Ibuprofen [Motrin] 400 mg PO Q8 PRN #21 tab 02/20/18 - Allergies Allergies/Adverse Reactions: Allergies Allergy/AdvReac Type Severity Reaction Status Date / Time No Known Allergies Allergy Verified 04/14/18 22:10 Review of Systems ROS Statement: Except As Marked, All Systems Reviewed And Found Negative Musculoskeletal: Positive for: Leg Pain Physical Exam - Reviewed Nursing Documentation Reviewed: Yes Vital Signs Reviewed: Yes - Physical Exam Appears: Positive for: Non-toxic, No Acute Distress Head Exam: Positive for: ATRAUMATIC, NORMAL INSPECTION, NORMOCEPHALIC Skin: Positive for: Normal Color, Warm, Dry Eye Exam: Positive for: EOMI, Normal appearance, PERRL Cardiovascular/Chest: Positive for: Regular Rate, Rhythm Respiratory: Positive for: Normal Breath Sounds Extremity: Positive for: Normal ROM (x 4) Neurologic/Psych: Positive for: Alert, Oriented (x 3). Negative for: Motor/Sensory Deficits - ECG O2 Sat by Pulse Oximetry: 96 (RA) Pulse Ox Interpretation: Normal Medical Decision Making Medical Decision Makin:10 --Patient requires no treatment in the ED. He is requesting a bed. Stable for discharge. Scribe Attestation: Documented by Erica Yanes acting as a scribe for Naun Burris MD Provider Scribe Attestation: All medical record entries made by the Scribe were at my direction and personally dictated by me. I have reviewed the chart and agree that the record accurately reflects my personal performance of the history, physical exam, medical decision making, and the department course for this patient. I have also personally directed, reviewed, and agree with the discharge instructions and disposition. Disposition - Clinical Impression Clinical Impression: Chronic pain - Patient ED Disposition Is Patient to be Admitted: No - Disposition Disposition: Routine/Home Disposition Time: 06:10 Condition: IMPROVED Additional Instructions: follow up with your doctor for your chronic medical conditions return to the ED with any worsening or concerning symptoms Instructions: Chronic Pain (DC), General (DC) Forms: [employer] (Luxembourgish)
== END 2018-04-15 06:45 | disposition home or self-care (01) ==
LOC: H.ER 06:02
DX: M79.606 Pain in leg, unspecified (principal); G89.29 Other chronic pain; F03.90 Unspecified dementia, unspecified severity, without behavioral disturbance, psychotic disturbance, mood disturbance, and anxiety; Z86.59 Personal history of other mental and behavioral disorders; I10 Essential (primary) hypertension; N40.0 Benign prostatic hyperplasia without lower urinary tract symptoms; E78.00 Pure hypercholesterolemia, unspecified; Z79.82 Long term (current) use of aspirin

== ENCOUNTER 2018-04-15 14:37 | Emergency (ER) | payer MEDICAID, MEDICARE ==
[2018-04-15 15:21] VITALS: BP 138/86; PULSE 88; RESP 18; TEMP 98.1; O2SAT 99
--- NOTE | 2018-04-15 15:50 | ED PDOC ---
HPI: General Adult Time Seen by Provider: 04/15/18 15:20 Chief Complaint (Nursing): Medical Clearance Chief Complaint (Provider): Medical Clearance History Per: Patient History/Exam Limitations: no limitations Onset/Duration Of Symptoms: Days Current Symptoms Are (Timing): Still Present Additional Complaint(s): Deepthi Bernal is a 62 year old male with a past medical history of hypertension, hypercholesterolemia, and anxiety who is presenting to the ED exhibiting bed seeking behavior and complaining of chronic foot pain. Patient had presented to [place] [facility] and [facility] earlier today with the same complaint of tired feet, being discharged from both. He offers no other medical complaints at this time. PMD: none provided Past Medical History Reviewed: Historical Data, Nursing Documentation, Vital Signs Vital Signs: Last Vital Signs Temp 98.1 F 04/15/18 15:20 Pulse 88 04/15/18 15:20 Resp 18 04/15/18 15:20 BP 138/86 04/15/18 15:20 Pulse Ox 99 04/15/18 15:20 - Medical History PMH: Anxiety, Arthritis, Benign Prostatic Hyperplasia, Bipolar Disorder, Dementia, HTN, Hypercholesterolemia - Surgical History Surgical History: No Surg Hx - Family History Family History: States: Unknown Family Hx - Social History Current smoker - smoking cessation education provided: No Alcohol: None Drugs: Denies - Immunization History Hx Tetanus Toxoid Vaccination: No Hx Influenza Vaccination: No Hx Pneumococcal Vaccination: No - Home Medications Home Medications: Ambulatory Orders Medication Instructions Recorded Aspirin [Ecotrin] 81 mg PO DAILY 12/25/17 Cilostazol [Pletal] 100 mg PO Q12 12/25/17 Lisinopril/Hydrochlorothiazide 1 tab PO DAILY 12/25/17 [Lisinopril-Hctz 20-25 mg Tab] risperiDONE [RisperDAL] 0.5 mg PO HS 12/25/17 Naproxen [Naprosyn] 500 mg PO Q12H PRN #30 tablet 02/05/18 Acetaminophen [Tylenol] 325 mg PO QID 5 Days #20 capsule 02/07/18 Simvastatin [Zocor] 20 mg PO HS 02/17/18 Tamsulosin [Flomax] 0.4 mg PO HS 02/17/18 Ibuprofen [Motrin] 400 mg PO Q8 PRN #21 tab 02/20/18 - Allergies Allergies/Adverse Reactions: Allergies Allergy/AdvReac Type Severity Reaction Status Date / Time No Known Allergies Allergy Verified 04/15/18 07:54 Review of Systems ROS Statement: Except As Marked, All Systems Reviewed And Found Negative Musculoskeletal: Positive for: Foot Pain Physical Exam - Reviewed Nursing Documentation Reviewed: Yes Vital Signs Reviewed: Yes - Physical Exam Appears: Positive for: Non-toxic, No Acute Distress Head Exam: Positive for: ATRAUMATIC, NORMAL INSPECTION, NORMOCEPHALIC Skin: Positive for: Normal Color, Warm, DRY Eye Exam: Positive for: Normal appearance Cardiovascular/Chest: Positive for: Regular Rate, Rhythm Respiratory: Positive for: Normal Breath Sounds. Negative for: Respiratory Distress Extremity: Positive for: Normal ROM. Negative for: Deformity, Swelling Neurologic/Psych: Positive for: Alert, Oriented. Negative for: Motor/Sensory Deficits - ECG O2 Sat by Pulse Oximetry: 99 (RA) Pulse Ox Interpretation: Normal Medical Decision Making Medical Decision Making: Time: 15:30 Patient offers no real medical complaints and is exhibiting bedseeking behavior in the ED. He is in no acute distress and is asking for a bed and food. Upon provider evaluation, patient has no medical concerns at this time and requires no treatment in the ED. He will be discharged. Scribe Attestation: Documented by, Maria Teresa Ghosh acting as a scribe for Vaughn Ordoñez PA-C. Provider Scribe Attestation: All medical record entries made by the Scribe were at my direction and personally dictated by me. I have reviewed the chart and agree that the record accurately reflects my personal performance of the history, physical exam, medical decision making, and the department course for this patient. I have also personally directed, reviewed, and agree with the discharge instructions and disposition. Disposition - Clinical Impression Clinical Impression: Homeless single person - Patient ED Disposition Is Patient to be Admitted: No Counseled Patient/Family Regarding: Diagnosis - Disposition Disposition: Routine/Home Disposition Time: 16:06 Condition: STABLE Instructions: General (DC) Forms: [employer] (Bengali)
== END 2018-04-15 15:55 | disposition home or self-care (01) ==
LOC: H.ER 14:37
DX: Z59.0 Homelessness (principal); I10 Essential (primary) hypertension; E78.00 Pure hypercholesterolemia, unspecified; F41.9 Anxiety disorder, unspecified

== ENCOUNTER 2018-04-15 16:04 | Emergency (ER) | payer MEDICARE ==
[2018-04-15 16:11] VITALS: BP 138/86; PULSE 86; RESP 20; TEMP 98.2; O2SAT 98
--- NOTE | 2018-04-15 16:21 | ED PDOC ---
HPI: General Adult Time Seen by Provider: 04/15/18 16:18 Chief Complaint (Nursing): Medical Clearance Chief Complaint (Provider): homeless History Per: Patient History/Exam Limitations: no limitations Onset/Duration Of Symptoms: Hrs Current Symptoms Are (Timing): Still Present Additional Complaint(s): Deepthi Bernal is a 62 year old male with a past medical history of hypertension, hypercholesterolemia, and anxiety who is presenting to the ED exhibiting bed seeking behavior and complaining of chronic foot pain. Patient had presented to [place] [facility] and [facility] earlier today with the same complaint of tired feet, being discharged from both. This is patient's second time in this ED today. He was seen here today with the same complaint and discharged. He offers no other medical complaints at this time. PMD: none provided Past Medical History Reviewed: Historical Data, Nursing Documentation, Vital Signs Vital Signs: Last Vital Signs Temp 98.2 F 04/15/18 16:08 Pulse 86 04/15/18 16:08 Resp 20 04/15/18 16:08 BP 138/86 04/15/18 16:08 Pulse Ox 98 04/15/18 16:08 - Medical History PMH: Anxiety, Arthritis, Benign Prostatic Hyperplasia, Bipolar Disorder, Dementia, HTN, Hypercholesterolemia - Surgical History Surgical History: No Surg Hx - Family History Family History: States: Unknown Family Hx - Social History Current smoker - smoking cessation education provided: No Alcohol: None Drugs: Denies - Immunization History Hx Tetanus Toxoid Vaccination: No Hx Influenza Vaccination: No Hx Pneumococcal Vaccination: No - Home Medications Home Medications: Ambulatory Orders Medication Instructions Recorded Aspirin [Ecotrin] 81 mg PO DAILY 12/25/17 Cilostazol [Pletal] 100 mg PO Q12 12/25/17 Lisinopril/Hydrochlorothiazide 1 tab PO DAILY 12/25/17 [Lisinopril-Hctz 20-25 mg Tab] risperiDONE [RisperDAL] 0.5 mg PO HS 12/25/17 Naproxen [Naprosyn] 500 mg PO Q12H PRN #30 tablet 02/05/18 Acetaminophen [Tylenol] 325 mg PO QID 5 Days #20 capsule 02/07/18 Simvastatin [Zocor] 20 mg PO HS 02/17/18 Tamsulosin [Flomax] 0.4 mg PO HS 02/17/18 Ibuprofen [Motrin] 400 mg PO Q8 PRN #21 tab 02/20/18 - Allergies Allergies/Adverse Reactions: Allergies Allergy/AdvReac Type Severity Reaction Status Date / Time No Known Allergies Allergy Verified 04/15/18 07:54 Review of Systems ROS Statement: Except As Marked, All Systems Reviewed And Found Negative Musculoskeletal: Positive for: Foot Pain Physical Exam - Reviewed Nursing Documentation Reviewed: Yes Vital Signs Reviewed: Yes - Physical Exam Comments: Patient rejected physical exam and is not cooperating. - ECG O2 Sat by Pulse Oximetry: 98 (RA) Pulse Ox Interpretation: Normal Medical Decision Making Medical Decision Making: Time: 16:22 Patient offers no real medical complaints and is exhibiting bedseeking behavior in the ED. He rejected the physical exam and thus wishes not to be treated. Upon provider evaluation, patient has no medical concerns at this time and requ ires no treatment in the ED. He will be discharged. Scribe Attestation: Documented by, Maria Teresa Ghosh acting as a scribe for Vaughn Ordoñez PA-C. Provider Scribe Attestation: All medical record entries made by the Scribe were at my direction and personally dictated by me. I have reviewed the chart and agree that the record accurately reflects my personal performance of the history, physical exam, medical decision making, and the department course for this patient. I have also personally directed, reviewed, and agree with the discharge instructions and disposition. Disposition - Clinical Impression Clinical Impression: Homeless single person, Malingerer - Patient ED Disposition Is Patient to be Admitted: No Counseled Patient/Family Regarding: Diagnosis - Disposition Disposition: Routine/Home Disposition Time: 16:29 Condition: STABLE Instructions: General (DC) Forms: [employer] (Uzbek)
== END 2018-04-15 17:30 | disposition home or self-care (01) ==
LOC: H.ER 16:04
DX: Z59.0 Homelessness (principal); Z76.5 Malingerer [conscious simulation]; I10 Essential (primary) hypertension; E78.00 Pure hypercholesterolemia, unspecified; F41.9 Anxiety disorder, unspecified

== ENCOUNTER 2018-04-16 10:49 | Emergency (ER) | payer MEDICARE, MEDICAID ==
[2018-04-16 11:00] VITALS: BP 158/86; PULSE 78; RESP 16; TEMP 97; O2SAT 99
--- NOTE | 2018-04-16 12:23 | ED PDOC ---
Lower Extremity Pain/Injury Time Seen by Provider: 04/16/18 11:04 Chief Complaint (Nursing): Lower Extremity Problem/Injury Chief Complaint (Provider): Leg pain History Per: Patient, EMS History/Exam Limitations: no limitations Current Symptoms Are (Timing): Still Present Additional Complaint(s): 62 year old homeless male, well known to the ED staff for bed seeking behavior, presents to the ED complaining of leg pain. Patient has been seen multiple times in various EDs for similar complaints over the last few days. Patient is sleeping comfortably upon arrival and states he has leg pain. However when further probed, patient refused to answer questions. Patient refusing to allow practitioner to examine him and states "give me a bottle so I can pee". PMD: none Past Medical History Reviewed: Historical Data, Nursing Documentation, Vital Signs Vital Signs: Last Vital Signs Temp 97 F L 04/16/18 10:57 Pulse 78 04/16/18 10:57 Resp 16 04/16/18 10:57 BP 158/86 H 04/16/18 10:57 Pulse Ox 99 04/16/18 10:57 - Medical History PMH: Anxiety, Arthritis, Benign Prostatic Hyperplasia, Bipolar Disorder, Dementia, HTN, Hypercholesterolemia - Family History Family History: States: Unknown Family Hx - Immunization History Hx Tetanus Toxoid Vaccination: No Hx Influenza Vaccination: No Hx Pneumococcal Vaccination: No - Home Medications Home Medications: Ambulatory Orders Medication Instructions Recorded Aspirin [Ecotrin] 81 mg PO DAILY 12/25/17 Cilostazol [Pletal] 100 mg PO Q12 12/25/17 Lisinopril/Hydrochlorothiazide 1 tab PO DAILY 12/25/17 [Lisinopril-Hctz 20-25 mg Tab] risperiDONE [RisperDAL] 0.5 mg PO HS 12/25/17 RX: Naproxen [Naprosyn] 500 mg PO Q12H PRN #30 tablet 02/05/18 Acetaminophen [Tylenol] 325 mg PO QID 5 Days #20 capsule 02/07/18 RX: Simvastatin [Zocor] 20 mg PO HS 02/17/18 Tamsulosin [Flomax] 0.4 mg PO HS 02/17/18 Ibuprofen [Motrin] 400 mg PO Q8 PRN #21 tab 02/20/18 - Allergies Allergies/Adverse Reactions: Allergies Allergy/AdvReac Type Severity Reaction Status Date / Time No Known Allergies Allergy Verified 04/16/18 22:20 Review of Systems ROS Statement: Except As Marked, All Systems Reviewed And Found Negative Musculoskeletal: Positive for: Leg Pain Physical Exam - Reviewed Nursing Documentation Reviewed: Yes Vital Signs Reviewed: Yes - Physical Exam Appears: Positive for: Well (Patient refusing to allow practitioner to examine legs.) Neurologic/Psych: Positive for: Alert, Oriented - ECG O2 Sat by Pulse Oximetry: 99 (RA) Pulse Ox Interpretation: Normal Medical Decision Making Medical Decision Making: Initial Impression: Bed seeking behavior Initial Plan: 12:08 Patient is stable for discharge. Scribe Attestation: Documented by Elias Garcia acting as a scribe for Meenu GALARZA. Provider Scribe Attestation: All medical record entries made by the Scribe were at my direction and personally dictated by me. I have reviewed the chart and agree that the record accurately reflects my personal performance of the history, physical exam, medical decision making, and the department course for this patient. I have also personally directed, reviewed, and agree with the discharge instructions and disposition. Disposition - Clinical Impression Clinical Impression: Malingering, Homelessness - Patient ED Disposition Is Patient to be Admitted: No - Disposition Disposition: Routine/Home Disposition Time: 13:29 Condition: STABLE Forms: [employer] (Slovenian) Print Language: NORTH KOREAN
== END 2018-04-16 12:25 | disposition home or self-care (01) ==
LOC: H.ER 10:49
DX: Z76.5 Malingerer [conscious simulation] (principal); Z59.0 Homelessness; F03.90 Unspecified dementia, unspecified severity, without behavioral disturbance, psychotic disturbance, mood disturbance, and anxiety; Z86.59 Personal history of other mental and behavioral disorders; I10 Essential (primary) hypertension; N40.0 Benign prostatic hyperplasia without lower urinary tract symptoms

== ENCOUNTER 2018-04-16 15:51 | Emergency (ER) | payer MEDICAID, MEDICARE ==
[2018-04-16 16:18] VITALS: BP 161/99; PULSE 87; RESP 17; TEMP 98.5; O2SAT 97
--- NOTE | 2018-04-16 16:59 | ED PDOC ---
Lower Extremity Pain/Injury Time Seen by Provider: 04/16/18 16:22 Chief Complaint (Nursing): Lower Extremity Problem/Injury Chief Complaint (Provider): "I want a bed" Additional Complaint(s): 62yo male became uncooperative in waiting area, demanding a bed to sleep. 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 I asked what his medical complaint was and he stated his feet hurt. I examined R foot, poor hygiene with onchomychosis and discharge between hallux and 2nd toe and he refused further exam. Requested new socks which were provided. Patient again demanded bed to sleep, offered list of shelters or warming centers he refused and walked out of ED. Past Medical History Reviewed: Historical Data, Nursing Documentation, Vital Signs Vital Signs: Last Vital Signs Temp 98.5 F 04/16/18 16:15 Pulse 87 04/16/18 16:15 Resp 17 04/16/18 16:15 BP 161/99 H 04/16/18 16:15 Pulse Ox 97 04/16/18 16:15 - Medical History PMH: Anxiety, Arthritis, Benign Prostatic Hyperplasia, Bipolar Disorder, Dementia, HTN, Hypercholesterolemia - Family History Family History: States: Unknown Family Hx - Living Arrangements Living Arrangements: Other (homeless) - Immunization History Hx Tetanus Toxoid Vaccination: No Hx Influenza Vaccination: No Hx Pneumococcal Vaccination: No - Home Medications Home Medications: Ambulatory Orders Medication Instructions Recorded Aspirin [Ecotrin] 81 mg PO DAILY 12/25/17 Cilostazol [Pletal] 100 mg PO Q12 12/25/17 Lisinopril/Hydrochlorothiazide 1 tab PO DAILY 12/25/17 [Lisinopril-Hctz 20-25 mg Tab] risperiDONE [RisperDAL] 0.5 mg PO HS 12/25/17 Naproxen [Naprosyn] 500 mg PO Q12H PRN #30 tablet 02/05/18 Acetaminophen [Tylenol] 325 mg PO QID 5 Days #20 capsule 02/07/18 Simvastatin [Zocor] 20 mg PO HS 02/17/18 Tamsulosin [Flomax] 0.4 mg PO HS 02/17/18 Ibuprofen [Motrin] 400 mg PO Q8 PRN #21 tab 02/20/18 - Allergies Allergies/Adverse Reactions: Allergies Allergy/AdvReac Type Severity Reaction Status Date / Time No Known Allergies Allergy Verified 04/16/18 16:18 Review of Systems Review Of Systems: ROS cannot be obtained secondary to pt's inabilty to answer questions. (refused) Physical Exam - Reviewed Nursing Documentation Reviewed: Yes Vital Signs Reviewed: Yes - Physical Exam Appears: Positive for: Well, Non-toxic Head Exam: Positive for: ATRAUMATIC Eye Exam: Negative for: Periorbital swelling Extremity: Positive for: Swelling (b/l LE +poor hygiene w onchomycosis and discharge R hallux) - ECG O2 Sat by Pulse Oximetry: 97 Medical Decision Making Medical Decision Making: pt walked out of ED prior to discharge papers. refused further eval in ED after not being provided a bed to sleep. Disposition - Clinical Impression Clinical Impression: Homeless, Chronic pain, Onychomycosis - Patient ED Disposition Is Patient to be Admitted: No - Disposition Disposition: Routine/Home Disposition Time: 16:45 Condition: STABLE
== END 2018-04-16 16:59 | disposition home or self-care (01) ==
LOC: H.ER 15:51
DX: B35.1 Tinea unguium (principal); G89.29 Other chronic pain; Z59.0 Homelessness; F03.90 Unspecified dementia, unspecified severity, without behavioral disturbance, psychotic disturbance, mood disturbance, and anxiety; Z86.59 Personal history of other mental and behavioral disorders; I10 Essential (primary) hypertension; N40.0 Benign prostatic hyperplasia without lower urinary tract symptoms; Z79.82 Long term (current) use of aspirin

== ENCOUNTER 2018-04-17 08:24 | Emergency (ER) | payer MEDICAID, MEDICARE ==
[2018-04-17 08:39] VITALS: BMI 25.7
--- NOTE | 2018-04-17 08:41 | ED PDOC ---
HPI: General Adult Time Seen by Provider: 04/17/18 08:34 Chief Complaint (Provider): Wants to lay down History Per: Patient History/Exam Limitations: no limitations Onset/Duration Of Symptoms: Days (today) Additional Complaint(s): Pt. states he wants to lay down and rest his legs. Is homeless and is walking around. No numbness, tingles, weakness. No calf pain, dyspnea, chest pain. No fever. Seen multiple times in the ER for the same. Denies suicidal or homicidal ideation. No drugs, etoh. Past Medical History Reviewed: Nursing Documentation, Vital Signs - Medical History PMH: Anxiety, Arthritis, Benign Prostatic Hyperplasia, Bipolar Disorder, Dementia, HTN, Hypercholesterolemia - Family History Family History: States: Unknown Family Hx - Immunization History Hx Tetanus Toxoid Vaccination: No Hx Influenza Vaccination: No Hx Pneumococcal Vaccination: No - Home Medications Home Medications: Ambulatory Orders Medication Instructions Recorded Aspirin [Ecotrin] 81 mg PO DAILY 12/25/17 Cilostazol [Pletal] 100 mg PO Q12 12/25/17 Lisinopril/Hydrochlorothiazide 1 tab PO DAILY 12/25/17 [Lisinopril-Hctz 20-25 mg Tab] risperiDONE [RisperDAL] 0.5 mg PO HS 12/25/17 Naproxen [Naprosyn] 500 mg PO Q12H PRN #30 tablet 02/05/18 Acetaminophen [Tylenol] 325 mg PO QID 5 Days #20 capsule 02/07/18 Simvastatin [Zocor] 20 mg PO HS 02/17/18 Tamsulosin [Flomax] 0.4 mg PO HS 02/17/18 Ibuprofen [Motrin] 400 mg PO Q8 PRN #21 tab 02/20/18 - Allergies Allergies/Adverse Reactions: Allergies Allergy/AdvReac Type Severity Reaction Status Date / Time No Known Allergies Allergy Verified 04/16/18 22:20 Review of Systems ROS Statement: Except As Marked, All Systems Reviewed And Found Negative Physical Exam - Reviewed Nursing Documentation Reviewed: Yes Vital Signs Reviewed: Yes - Physical Exam Appears: Positive for: Well, Non-toxic, No Acute Distress Head Exam: Positive for: ATRAUMATIC, NORMAL INSPECTION, NORMOCEPHALIC Skin: Positive for: Normal Color, Warm, DRY Eye Exam: Positive for: EOMI, Normal appearance, PERRL ENT: Positive for: Normal ENT Inspection Neck: Positive for: Normal, Painless ROM Cardiovascular/Chest: Positive for: Regular Rate, Rhythm Respiratory: Positive for: CNT, Normal Breath Sounds Gastrointestinal/Abdominal: Positive for: Normal Exam, Soft. Negative for: Tenderness Back: Positive for: Normal Inspection. Negative for: L CVA Tenderness, R CVA Tenderness Extremity: Positive for: Normal ROM. Negative for: Tenderness Neurologic/Psych: Positive for: Alert, Oriented - Progress ED Course And Treament: 843: Stable. AAOx3. Pain free. Demanding a bed to sleep on. No acute conditions at this time. Fu with pcp. Disposition - Clinical Impression Clinical Impression: Homeless - Patient ED Disposition Is Patient to be Admitted: No Counseled Patient/Family Regarding: Diagnosis, Need For Followup - Disposition Referrals: [facility] [Outside] Disposition: Routine/Home Disposition Time: 08:44 Condition: STABLE Instructions: Daytime Sleepiness
[2018-04-17 08:54] VITALS: BP 136/82; PULSE 77; RESP 16; TEMP 98.2; O2SAT 100
== END 2018-04-17 09:05 | disposition home or self-care (01) ==
LOC: H.ER 08:24
DX: Z59.0 Homelessness (principal)

== ENCOUNTER 2018-04-17 11:00 | Emergency (ER) | payer MEDICARE ==
[2018-04-17 11:01] VITALS: BMI 25.7
--- NOTE | 2018-04-17 11:46 | ED PDOC ---
Lower Extremity Pain/Injury Time Seen by Provider: 04/17/18 11:09 Chief Complaint (Nursing): Lower Extremity Problem/Injury Chief Complaint (Provider): lower extremity pain History Per: Patient, EMS Additional Complaint(s): 62yo male known to ED for frequent visits, now returns w EMS after reportedly being disruptive in a laundromat. Requesting a bed to sleep. Aggressive to staff, also demanding food. Has chronic pain to bilateral feet. Seen in ED yesterday for similar, provided new socks and foot hygiene. Past Medical History Reviewed: Historical Data, Nursing Documentation, Vital Signs - Medical History PMH: Anxiety, Arthritis, Benign Prostatic Hyperplasia, Bipolar Disorder, Dementia, HTN, Hypercholesterolemia Denies: Chronic Kidney Disease - Family History Family History: States: Unknown Family Hx - Living Arrangements Living Arrangements: Other (homeless) - Immunization History Hx Tetanus Toxoid Vaccination: No Hx Influenza Vaccination: No Hx Pneumococcal Vaccination: No - Home Medications Home Medications: Ambulatory Orders Medication Instructions Recorded Aspirin [Ecotrin] 81 mg PO DAILY 12/25/17 Cilostazol [Pletal] 100 mg PO Q12 12/25/17 Lisinopril/Hydrochlorothiazide 1 tab PO DAILY 12/25/17 [Lisinopril-Hctz 20-25 mg Tab] risperiDONE [RisperDAL] 0.5 mg PO HS 12/25/17 Naproxen [Naprosyn] 500 mg PO Q12H PRN #30 tablet 02/05/18 Acetaminophen [Tylenol] 325 mg PO QID 5 Days #20 capsule 02/07/18 Simvastatin [Zocor] 20 mg PO HS 02/17/18 Tamsulosin [Flomax] 0.4 mg PO HS 02/17/18 Ibuprofen [Motrin] 400 mg PO Q8 PRN #21 tab 02/20/18 - Allergies Allergies/Adverse Reactions: Allergies Allergy/AdvReac Type Severity Reaction Status Date / Time No Known Allergies Allergy Verified 04/16/18 22:20 Review of Systems Review Of Systems: ROS cannot be obtained secondary to pt's inabilty to answer questions. (refused) Physical Exam - Reviewed Nursing Documentation Reviewed: Yes Vital Signs Reviewed: Yes - Physical Exam Appears: Positive for: Well (aggressive) Head Exam: Positive for: ATRAUMATIC Respiratory: Negative for: Respiratory Distress Neurologic/Psych: Positive for: Alert, Oriented, Mood/Affect (labile mood), Gait (stable with cane). Negative for: Motor/Sensory Deficits Medical Decision Making Medical Decision Making: patient disruptive to staff and other patients. Attempted to walk into other patients rooms, demanding food and a bed to sleep. Given list of shelters and followup clinic. Disposition - Clinical Impression Clinical Impression: Chronic pain - Patient ED Disposition Is Patient to be Admitted: No Counseled Patient/Family Regarding: Studies Performed, Diagnosis - Disposition Referrals: [facility] [Outside] Disposition: Routine/Home Disposition Time: 11:35 Condition: STABLE Additional Instructions: Return to ER for any worse or new symptoms. Followup with clinic for continuing care. Instructions: Chronic Pain Forms: [employer] (Chinese)
[2018-04-17 11:52] VITALS: BP 159/86; PULSE 80; RESP 16; TEMP 98.3; O2SAT 100
== END 2018-04-17 11:35 | disposition home or self-care (01) ==
LOC: H.ER 11:00
DX: G89.29 Other chronic pain (principal)

== ENCOUNTER 2018-04-18 02:20 | Emergency (ER) | payer MEDICARE ==
[2018-04-18 02:21] VITALS: BMI 25.7
[2018-04-18 02:33] VITALS: BP 122/71; PULSE 79; RESP 18; TEMP 97.7; O2SAT 100
--- NOTE | 2018-04-18 02:50 | ED PDOC ---
HPI: General Adult Time Seen by Provider: 04/18/18 02:27 Chief Complaint (Nursing): Lower Extremity Problem/Injury Chief Complaint (Provider): BED MALINGERING History Per: Patient History/Exam Limitations: no limitations Onset/Duration Of Symptoms: Days Current Symptoms Are (Timing): Still Present Additional Complaint(s): 62 y/o male well known to ED staff and provider for bed malingering. Patient requesting for a bed to lie down in. Patient is requesting food at this time. PMD: none Past Medical History Reviewed: Historical Data, Nursing Documentation, Vital Signs Vital Signs: Last Vital Signs Temp 97.7 F 04/18/18 02:31 Pulse 79 04/18/18 02:31 Resp 18 04/18/18 02:31 BP 122/71 04/18/18 02:31 Pulse Ox 100 04/18/18 02:31 - Medical History PMH: Anxiety, Arthritis, Benign Prostatic Hyperplasia, Bipolar Disorder, Dementia, HTN, Hypercholesterolemia Denies: Chronic Kidney Disease - Surgical History Surgical History: No Surg Hx - Family History Family History: States: Unknown Family Hx - Immunization History Hx Tetanus Toxoid Vaccination: No Hx Influenza Vaccination: No Hx Pneumococcal Vaccination: No - Home Medications Home Medications: Ambulatory Orders Medication Instructions Recorded Aspirin [Ecotrin] 81 mg PO DAILY 12/25/17 Cilostazol [Pletal] 100 mg PO Q12 12/25/17 Lisinopril/Hydrochlorothiazide 1 tab PO DAILY 12/25/17 [Lisinopril-Hctz 20-25 mg Tab] risperiDONE [RisperDAL] 0.5 mg PO HS 12/25/17 Naproxen [Naprosyn] 500 mg PO Q12H PRN #30 tablet 02/05/18 Acetaminophen [Tylenol] 325 mg PO QID 5 Days #20 capsule 02/07/18 Simvastatin [Zocor] 20 mg PO HS 02/17/18 Tamsulosin [Flomax] 0.4 mg PO HS 02/17/18 Ibuprofen [Motrin] 400 mg PO Q8 PRN #21 tab 02/20/18 - Allergies Allergies/Adverse Reactions: Allergies Allergy/AdvReac Type Severity Reaction Status Date / Time No Known Allergies Allergy Verified 04/16/18 22:20 Review of Systems ROS Statement: Except As Marked, All Systems Reviewed And Found Negative Constitutional: Positive for: Other (bed malingering) Physical Exam - Reviewed Nursing Documentation Reviewed: Yes Vital Signs Reviewed: Yes - Physical Exam Appears: Positive for: No Acute Distress Head Exam: Positive for: ATRAUMATIC, NORMOCEPHALIC Skin: Positive for: Normal Color, Warm, Dry Eye Exam: Positive for: Normal appearance, EOMI, PERRL Neck: Positive for: Normal, Painless ROM, Supple Cardiovascular/Chest: Positive for: Regular Rate, Rhythm. Negative for: Murmur Respiratory: Positive for: Normal Breath Sounds. Negative for: Respiratory Distress Pulses-Dorsalis Pedis (L): 2+ Pulses-Dorsalis Pedis (R): 2+ Pulses-Radial (L): 2+ Pulses-Radial (R): 2+ Gastrointestinal/Abdominal: Positive for: Normal Exam, Soft. Negative for: Tenderness Back: Positive for: Normal Inspection. Negative for: L CVA Tenderness, R CVA Tenderness Extremity: Positive for: Normal ROM. Negative for: Deformity Neurologic/Psych: Positive for: Alert, Oriented, Gait (STEADY AND UNASSISTED). Negative for: Motor/Sensory Deficits - ECG O2 Sat by Pulse Oximetry: 100 (RA) Pulse Ox Interpretation: Normal Medical Decision Making Medical Decision Making: Scribe Attestation: Documented by Zev Saldivar, acting as a scribe for Drew Monsalve PA-C. Provider Scribe Attestation: All medical record entries made by the Scribe were at my direction and personally dictated by me. I have reviewed the chart and agree that the record accurately reflects my personal performance of the history, physical exam, medical decision making, and the department course for this patient. I have also personally directed, reviewed, and agree with the discharge instructions and disposition. Disposition - Clinical Impression Clinical Impression: Malingerer - Patient ED Disposition Is Patient to be Admitted: No - Disposition Referrals: [facility] [Outside] Disposition: Routine/Home Disposition Time: 02:42 Condition: STABLE Forms: [email or web address] (Slovak)
== END 2018-04-18 03:02 | disposition home or self-care (01) ==
LOC: H.ER 02:20
DX: Z76.5 Malingerer [conscious simulation] (principal)

== ENCOUNTER 2018-04-19 14:36 | Emergency (ER) | payer MEDICAID, MEDICARE ==
[2018-04-19 14:36] VITALS: BMI 25.7
[2018-04-19 14:42] VITALS: TEMP 97.7
--- NOTE | 2018-04-19 16:25 | ED PDOC ---
HPI: General Adult Time Seen by Provider: 04/19/18 14:46 Chief Complaint (Nursing): Medical Clearance Chief Complaint (Provider): Medical Clearance History Per: Patient History/Exam Limitations: no limitations Current Symptoms Are (Timing): Gone Now Severity: None Additional Complaint(s): 62 year old homeless male well known to the ED and provider presents to the ED s tating that he wants a place to lie down. Patient denies having any complaints. PMD: None provided. Past Medical History Reviewed: Historical Data, Nursing Documentation, Vital Signs Vital Signs: Last Vital Signs Temp 97.7 F 04/19/18 14:41 Pulse 87 04/19/18 14:41 Resp 20 04/19/18 14:41 BP 154/81 H 04/19/18 14:41 Pulse Ox 100 04/19/18 14:41 LISSETH Report Viewed: Yes - Medical History PMH: Anxiety, Arthritis, Benign Prostatic Hyperplasia, Bipolar Disorder, Dementia, HTN, Hypercholesterolemia Denies: Chronic Kidney Disease - Family History Family History: States: No Known Family Hx - Social History Current smoker - smoking cessation education provided: No Ex-Smoker (has not smoked in the last 12 months): Yes Alcohol: None Drugs: Denies - Immunization History Hx Tetanus Toxoid Vaccination: No Hx Influenza Vaccination: No Hx Pneumococcal Vaccination: No - Home Medications Home Medications: Ambulatory Orders Medication Instructions Recorded Aspirin [Ecotrin] 81 mg PO DAILY 12/25/17 Cilostazol [Pletal] 100 mg PO Q12 12/25/17 Lisinopril/Hydrochlorothiazide 1 tab PO DAILY 12/25/17 [Lisinopril-Hctz 20-25 mg Tab] risperiDONE [RisperDAL] 0.5 mg PO HS 12/25/17 RX: Naproxen [Naprosyn] 500 mg PO Q12H PRN #30 tablet 02/05/18 Acetaminophen [Tylenol] 325 mg PO QID 5 Days #20 capsule 02/07/18 RX: Simvastatin [Zocor] 20 mg PO HS 02/17/18 Tamsulosin [Flomax] 0.4 mg PO HS 02/17/18 Ibuprofen [Motrin] 400 mg PO Q8 PRN #21 tab 02/20/18 - Allergies Allergies/Adverse Reactions: Allergies Allergy/AdvReac Type Severity Reaction Status Date / Time No Known Allergies Allergy Verified 04/19/18 14:42 Review of Systems ROS Statement: Except As Marked, All Systems Reviewed And Found Negative Physical Exam - Reviewed Nursing Documentation Reviewed: Yes Vital Signs Reviewed: Yes - Physical Exam Appears: Positive for: Well, Non-toxic, No Acute Distress Head Exam: Positive for: ATRAUMATIC, NORMOCEPHALIC Skin: Positive for: Normal Color, Warm, Dry Eye Exam: Positive for: Normal appearance Cardiovascular/Chest: Positive for: Regular Rate, Rhythm Respiratory: Positive for: Normal Breath Sounds Neurologic/Psych: Positive for: Alert, Oriented (3x), Gait (steady and unassisted) - ECG O2 Sat by Pulse Oximetry: 100 (RA) Pulse Ox Interpretation: Normal Medical Decision Making Medical Decision Makin:46 Initial impression: 62 year old male malingering Scribe Attestation: Documented Héctor Tian, acting as a scribe for Drew Simon Provider Scribe Attestation: All medical record entries made by the Scribe were at my direction and personally dictated by me. I have reviewed the chart and agree that the record accurately reflects my personal performance of the history, physical exam, medical decision making, and the department course for this patient. I have also personally directed, reviewed, and agree with the discharge instructions and disposition. Disposition - Clinical Impression Clinical Impression: Malingerer - Patient ED Disposition Is Patient to be Admitted: No - Disposition Disposition: Routine/Home Disposition Time: 14:30 Condition: STABLE Additional Instructions: GERALDINE RADER, thank you for letting us take care of you today. Your provider was Master Handley MD and you were treated for LEG PAIN. The emergency medical care you received today was directed at your acute symptoms. If you were prescribed any medication, please fill it and take as directed. It may take several days for your symptoms to resolve. Return to the Emergency Department if your symptoms worsen, do not improve, or if you have any other problems. Please contact your doctor or call one of the physicians/clinics you have been referred to that are listed on the Patient Visit Information form that is included in your discharge packet. Bring any paperwork you were given at discharge with you along with any medications you are taking to your follow up visit. Our treatment cannot replace ongoing medical care by a primary care provider outside of the emergency department. Thank you for allowing the [facility] team to be part of your care today. If you had an X-Ray or CT scan: A Radiologist will review the ED reading if any change in treatment is needed we will contact you. If you had a blood, urine, or wound culture: It will take several days for the results, if any change in treatment is needed we will contact you. If you had an STI test: It will take 48 hours for the results. Please call after 1 week if you have not heard back. Instructions: General (DC) Forms: [employer] (Egyptian)
[2018-04-19 16:43] VITALS: BP 140/76; PULSE 78; RESP 18
[2018-04-19 16:53] VITALS: O2SAT 100
== END 2018-04-19 17:42 | disposition home or self-care (01) ==
LOC: H.ER 14:36
DX: Z76.5 Malingerer [conscious simulation] (principal); Z59.0 Homelessness; F03.90 Unspecified dementia, unspecified severity, without behavioral disturbance, psychotic disturbance, mood disturbance, and anxiety; Z86.59 Personal history of other mental and behavioral disorders; I10 Essential (primary) hypertension; N40.0 Benign prostatic hyperplasia without lower urinary tract symptoms; Z87.891 Personal history of nicotine dependence; E78.00 Pure hypercholesterolemia, unspecified; Z79.82 Long term (current) use of aspirin

== ENCOUNTER 2018-04-27 11:50 | Emergency (ER) | payer MEDICAID, MEDICARE ==
[2018-04-27 11:50] VITALS: BMI 29.9
[2018-04-27 11:55] VITALS: BP 156/92; PULSE 73; RESP 17; TEMP 97.5; O2SAT 100
--- NOTE | 2018-04-27 13:20 | ED PDOC ---
HPI: General Adult Time Seen by Provider: 04/27/18 11:59 Chief Complaint (Nursing): Medical Clearance History Per: Patient, EMS Onset/Duration Of Symptoms: Hrs Current Symptoms Are (Timing): Still Present Additional History Per: Patient, EMS Additional Complaint(s): Pt. well known to ED, present to ED today with bed seeking behavior. Pt. requesting lunch, new belt and new shoes. Pt. reports chronic leg pain, worse after long periods of walking. Pt. denies any injury, cp or difficulty breathing. Past Medical History Vital Signs: Last Vital Signs Temp 97.5 F L 04/27/18 11:54 Pulse 73 04/27/18 11:54 Resp 17 04/27/18 11:54 BP 156/92 H 04/27/18 11:54 Pulse Ox 100 04/27/18 11:54 - Medical History PMH: Anxiety, Arthritis, Benign Prostatic Hyperplasia, Bipolar Disorder, Dementia, HTN, Hypercholesterolemia Denies: Chronic Kidney Disease - Family History Family History: States: Unknown Family Hx - Immunization History Hx Tetanus Toxoid Vaccination: No Hx Influenza Vaccination: No Hx Pneumococcal Vaccination: No - Home Medications Home Medications: Ambulatory Orders Medication Instructions Recorded Aspirin [Ecotrin] 81 mg PO DAILY 12/25/17 Cilostazol [Pletal] 100 mg PO Q12 12/25/17 Lisinopril/Hydrochlorothiazide 1 tab PO DAILY 12/25/17 [Lisinopril-Hctz 20-25 mg Tab] risperiDONE [RisperDAL] 0.5 mg PO HS 12/25/17 Naproxen [Naprosyn] 500 mg PO Q12H PRN #30 tablet 02/05/18 Acetaminophen [Tylenol] 325 mg PO QID 5 Days #20 capsule 02/07/18 Simvastatin [Zocor] 20 mg PO HS 02/17/18 Tamsulosin [Flomax] 0.4 mg PO HS 02/17/18 Ibuprofen [Motrin] 400 mg PO Q8 PRN #21 tab 02/20/18 traMADol [Ultram] 50 mg PO TID PRN #10 tab 04/21/18 - Allergies Allergies/Adverse Reactions: Allergies Allergy/AdvReac Type Severity Reaction Status Date / Time No Known Allergies Allergy Verified 04/26/18 07:49 Review of Systems Constitutional: Negative for: Fever, Chills Eyes: Negative for: Pain Cardiovascular: Negative for: Chest Pain Respiratory: Negative for: Cough Gastrointestinal: Negative for: Abdominal Pain Physical Exam - Reviewed Nursing Documentation Reviewed: Yes Vital Signs Reviewed: Yes - Physical Exam Appears: Positive for: Non-toxic, No Acute Distress Head Exam: Positive for: ATRAUMATIC Skin: Positive for: Normal Color, Warm, Dry Eye Exam: Positive for: Normal appearance Cardiovascular/Chest: Positive for: Regular Rate, Rhythm Respiratory: Positive for: Normal Breath Sounds Extremity: Positive for: Pedal Edema (bilateral nontender pedal edema). Negative for: Normal ROM - ECG O2 Sat by Pulse Oximetry: 100 Medical Decision Making Medical Decision Making: Pt. well appearing, no complaint. Pt. ambulatory with steady gait. Disposition - Clinical Impression Clinical Impression: Homeless single person, Chronic leg pain - Patient ED Disposition Is Patient to be Admitted: No - Disposition Referrals: [facility] [Outside] Disposition: Routine/Home Disposition Time: 13:27 Condition: STABLE Instructions: General (DC), Lower Extremity Muscle Strain (DC)
== END 2018-04-27 15:35 | disposition home or self-care (01) ==
LOC: H.ER 11:50
DX: M79.606 Pain in leg, unspecified (principal); G89.29 Other chronic pain; Z59.0 Homelessness; Z86.59 Personal history of other mental and behavioral disorders; I10 Essential (primary) hypertension; N40.0 Benign prostatic hyperplasia without lower urinary tract symptoms; Z79.82 Long term (current) use of aspirin

== ENCOUNTER 2018-04-27 16:57 | Emergency (ER) | payer MEDICAID, MEDICARE ==
[2018-04-27 16:58] VITALS: BMI 29.9
--- NOTE | 2018-04-27 17:25 | ED PDOC ---
Lower Extremity Pain/Injury Time Seen by Provider: 04/27/18 17:22 Chief Complaint (Nursing): Lower Extremity Problem/Injury Chief Complaint (Provider): Bilateral leg pains History Per: Patient History/Exam Limitations: no limitations Onset/Duration Of Symptoms: Persistent Current Symptoms Are (Timing): Still Present Additional Complaint(s): 62yo male, well known to ER, comes in for evaluation of recurrent bilateral leg pains. Patient denies any trauma or injuries to his legs. No additional complaints. Past Medical History Reviewed: Historical Data, Nursing Documentation, Vital Signs - Medical History PMH: Anxiety, Arthritis, Benign Prostatic Hyperplasia, Bipolar Disorder, Dementia, HTN, Hypercholesterolemia Denies: Chronic Kidney Disease - Surgical History Surgical History: No Surg Hx - Family History Family History: States: Unknown Family Hx - Immunization History Hx Tetanus Toxoid Vaccination: No Hx Influenza Vaccination: No Hx Pneumococcal Vaccination: No - Home Medications Home Medications: Ambulatory Orders Medication Instructions Recorded Aspirin [Ecotrin] 81 mg PO DAILY 12/25/17 Cilostazol [Pletal] 100 mg PO Q12 12/25/17 Lisinopril/Hydrochlorothiazide 1 tab PO DAILY 12/25/17 [Lisinopril-Hctz 20-25 mg Tab] risperiDONE [RisperDAL] 0.5 mg PO HS 12/25/17 RX: Naproxen [Naprosyn] 500 mg PO Q12H PRN #30 tablet 02/05/18 Acetaminophen [Tylenol] 325 mg PO QID 5 Days #20 capsule 02/07/18 RX: Simvastatin [Zocor] 20 mg PO HS 02/17/18 Tamsulosin [Flomax] 0.4 mg PO HS 02/17/18 Ibuprofen [Motrin] 400 mg PO Q8 PRN #21 tab 02/20/18 RX: traMADol [Ultram] 50 mg PO TID PRN #10 tab 04/21/18 - Allergies Allergies/Adverse Reactions: Allergies Allergy/AdvReac Type Severity Reaction Status Date / Time No Known Allergies Allergy Verified 04/27/18 17:13 Review of Systems ROS Statement: Except As Marked, All Systems Reviewed And Found Negative Musculoskeletal: Positive for: Leg Pain (bilateral) Physical Exam - Reviewed Nursing Documentation Reviewed: Yes Vital Signs Reviewed: Yes - Physical Exam Appears: Positive for: No Acute Distress Head Exam: Positive for: NORMAL INSPECTION Skin: Positive for: Normal Color Neck: Positive for: Supple Cardiovascular/Chest: Positive for: Regular Rate, Rhythm Respiratory: Positive for: Normal Breath Sounds Pulses-Dorsalis Pedis (L): 2+ Pulses-Dorsalis Pedis (R): 2+ Extremity: Positive for: Normal ROM. Negative for: Calf Tenderness (b/l) Neurologic/Psych: Positive for: Alert, Oriented, Gait (steady, unassisted) Medical Decision Making Medical Decision Making: Impression: Chronic leg pain Plan: Patient with steady gait and unassisted; stable for discharge home. Scribe Attestation: Documented by Chelsey Salvador, acting as a scribe for GEOVANNI Mulligan. Provider Scribe Attestation: All medical record entries made by the Scribe were at my direction and personally dictated by me. I have reviewed the chart and agree that the record accurately reflects my personal performance of the history, physical exam, medical decision making, and the department course for this patient. I have also personally directed, reviewed, and agree with the discharge instructions and disposition. Disposition - Clinical Impression Clinical Impression: Malingerer - Patient ED Disposition Is Patient to be Admitted: No - Disposition Disposition: Routine/Home Disposition Time: 17:28 Condition: STABLE Forms: [employer] (Bengali)
[2018-04-27 17:34] VITALS: BP 130/70; PULSE 74; RESP 20; TEMP 98; O2SAT 98
== END 2018-04-27 17:55 | disposition home or self-care (01) ==
LOC: H.ER 16:57
DX: Z76.5 Malingerer [conscious simulation] (principal); Z86.59 Personal history of other mental and behavioral disorders; G89.29 Other chronic pain; I10 Essential (primary) hypertension; N40.0 Benign prostatic hyperplasia without lower urinary tract symptoms

== ENCOUNTER 2018-05-07 05:49 | Emergency (ER) | payer MEDICARE ==
[2018-05-07 05:49] VITALS: BMI 29.9
[2018-05-07 05:54] VITALS: BP 132/81; PULSE 82; RESP 16; TEMP 98; O2SAT 97
--- NOTE | 2018-05-07 05:55 | ED PDOC ---
HPI: General Adult Time Seen by Provider: 05/07/18 05:50 Chief Complaint (Nursing): Medical Clearance Chief Complaint (Provider): none History Per: Patient Additional Complaint(s): 62 y/o male brought in by EMS for evaluation. Patient offers no complaints, states he has no where to go. Of note, patient seen a few hours earlier and discharge; after being asked to leave waiting room by security patient ambulated out of ED and called 911 to be brought back Past Medical History Reviewed: Historical Data, Nursing Documentation, Vital Signs Vital Signs: Last Vital Signs Temp 98.0 F 05/07/18 05:52 Pulse 82 05/07/18 05:52 Resp 16 05/07/18 05:52 BP 132/81 05/07/18 05:52 Pulse Ox 97 05/07/18 05:52 - Medical History PMH: Anxiety, Arthritis, Benign Prostatic Hyperplasia, Bipolar Disorder, Dementia, HTN, Hypercholesterolemia Denies: Chronic Kidney Disease - Family History Family History: States: Unknown Family Hx - Immunization History Hx Tetanus Toxoid Vaccination: No Hx Influenza Vaccination: No Hx Pneumococcal Vaccination: No - Home Medications Home Medications: Ambulatory Orders Medication Instructions Recorded Aspirin [Ecotrin] 81 mg PO DAILY 12/25/17 Cilostazol [Pletal] 100 mg PO Q12 12/25/17 Lisinopril/Hydrochlorothiazide 1 tab PO DAILY 12/25/17 [Lisinopril-Hctz 20-25 mg Tab] Simvastatin [Zocor] 20 mg PO HS 02/17/18 Tamsulosin [Flomax] 0.4 mg PO HS 02/17/18 Ibuprofen [Motrin Tab] 400 mg PO Q8 PRN #21 tab 02/20/18 - Allergies Allergies/Adverse Reactions: Allergies Allergy/AdvReac Type Severity Reaction Status Date / Time No Known Allergies Allergy Verified 04/29/18 18:56 Review of Systems ROS Statement: Except As Marked, All Systems Reviewed And Found Negative Physical Exam - Reviewed Nursing Documentation Reviewed: Yes Vital Signs Reviewed: Yes - Physical Exam Appears: Positive for: Well, Non-toxic, No Acute Distress Skin: Positive for: Normal Color Cardiovascular/Chest: Positive for: Regular Rate, Rhythm Respiratory: Positive for: Normal Breath Sounds Back: Positive for: Normal Inspection Extremity: Positive for: Normal ROM Neurologic/Psych: Positive for: Alert, Oriented (x3) - ECG O2 Sat by Pulse Oximetry: 97 - Progress ED Course And Treament: Patient requires no further intervention in the ED and is stable for discharge at this time Disposition - Clinical Impression Clinical Impression: Malingerer - Patient ED Disposition Is Patient to be Admitted: No Counseled Patient/Family Regarding: Diagnosis, Need For Followup - Disposition Disposition: Routine/Home Disposition Time: 06:00 Condition: GOOD Instructions: General (DC)
== END 2018-05-07 05:56 | disposition home or self-care (01) ==
LOC: H.ER 05:49
DX: Z76.5 Malingerer [conscious simulation] (principal); I10 Essential (primary) hypertension; N40.0 Benign prostatic hyperplasia without lower urinary tract symptoms; F03.90 Unspecified dementia, unspecified severity, without behavioral disturbance, psychotic disturbance, mood disturbance, and anxiety; Z86.59 Personal history of other mental and behavioral disorders

== ENCOUNTER 2018-05-07 08:01 | Emergency (ER) | payer MEDICARE ==
[2018-05-07 08:01] VITALS: BMI 29.9
[2018-05-07 08:06] VITALS: O2SAT 98
[2018-05-07 08:08] VITALS: RESP 20
--- NOTE | 2018-05-07 08:17 | ED PDOC ---
Lower Extremity Pain/Injury Time Seen by Provider: 05/07/18 08:03 Chief Complaint (Nursing): Lower Extremity Problem/Injury Chief Complaint (Provider): Fall, leg pain History Per: Patient History/Exam Limitations: no limitations Additional Complaint(s): 62yo male, well known to ER, brought by EMS for evaluation due to fall; patient seen ambulatory in field with steady gait. Patient denies any trauma or injuries to his legs. No additional complaints. Past Medical History Reviewed: Historical Data, Nursing Documentation, Vital Signs Vital Signs: Last Vital Signs Temp 98 F 05/07/18 08:07 Pulse 86 05/07/18 08:07 Resp 20 05/07/18 08:07 BP 119/72 05/07/18 08:07 Pulse Ox 98 05/07/18 08:07 - Medical History PMH: Anxiety, Arthritis, Benign Prostatic Hyperplasia, Bipolar Disorder, Dementia, HTN, Hypercholesterolemia Denies: Chronic Kidney Disease - Family History Family History: States: Unknown Family Hx - Immunization History Hx Tetanus Toxoid Vaccination: No Hx Influenza Vaccination: No Hx Pneumococcal Vaccination: No - Home Medications Home Medications: Ambulatory Orders Medication Instructions Recorded Aspirin [Ecotrin] 81 mg PO DAILY 12/25/17 Cilostazol [Pletal] 100 mg PO Q12 12/25/17 Lisinopril/Hydrochlorothiazide 1 tab PO DAILY 12/25/17 [Lisinopril-Hctz 20-25 mg Tab] Simvastatin [Zocor] 20 mg PO HS 02/17/18 Tamsulosin [Flomax] 0.4 mg PO HS 02/17/18 Ibuprofen [Motrin Tab] 400 mg PO Q8 PRN #21 tab 02/20/18 - Allergies Allergies/Adverse Reactions: Allergies Allergy/AdvReac Type Severity Reaction Status Date / Time No Known Allergies Allergy Verified 04/29/18 18:56 Review of Systems ROS Statement: Except As Marked, All Systems Reviewed And Found Negative Musculoskeletal: Positive for: Leg Pain (chronic) Neurological: Negative for: Weakness, Numbness Physical Exam - Reviewed Nursing Documentation Reviewed: Yes Vital Signs Reviewed: Yes - Physical Exam Appears: Positive for: No Acute Distress Head Exam: Positive for: ATRAUMATIC, NORMAL INSPECTION, NORMOCEPHALIC Skin: Positive for: Normal Color Eye Exam: Positive for: Normal appearance Neck: Positive for: Supple Cardiovascular/Chest: Positive for: Regular Rate, Rhythm Respiratory: Positive for: Normal Breath Sounds Extremity: Positive for: Normal ROM Neurologic/Psych: Positive for: Alert, Oriented, Gait (patient with steady gait) - ECG O2 Sat by Pulse Oximetry: 98 (RA) Pulse Ox Interpretation: Normal Medical Decision Making Medical Decision Making: Impression: Chronic leg pain Plan: Patient with steady gait and unassisted; stable for discharge home. Scribe Attestation: Documented by Chelsey Salvador, acting as a scribe for Shailesh Garcia MD. Provider Scribe Attestation: All medical record entries made by the Scribe were at my direction and personally dictated by me. I have reviewed the chart and agree that the record accurately reflects my personal performance of the history, physical exam, medical decision making, and the department course for this patient. I have also personally directed, reviewed, and agree with the discharge instructions and disposition. Disposition - Clinical Impression Clinical Impression: Chronic pain of lower extremity, bilateral - Patient ED Disposition Is Patient to be Admitted: No Counseled Patient/Family Regarding: Diagnosis, Need For Followup - Disposition Referrals: [facility] [Outside] Disposition: Routine/Home Disposition Time: 08:28 Condition: FAIR Instructions: Chronic Pain (DC) Forms: [employer] (Luxembourger)
[2018-05-07 08:57] VITALS: BP 120/70; PULSE 74; TEMP 98.5
== END 2018-05-07 08:57 | disposition home or self-care (01) ==
LOC: H.ER 08:01
DX: M79.605 Pain in left leg (principal); M79.604 Pain in right leg; G89.29 Other chronic pain

== ENCOUNTER 2018-05-09 09:45 | Emergency (ER) | payer MEDICARE ==
[2018-05-09 09:45] VITALS: BMI 29.9
[2018-05-09 09:53] VITALS: BP 139/83; PULSE 65; RESP 18; TEMP 98.1; O2SAT 100
--- NOTE | 2018-05-09 10:54 | ED PDOC ---
Lower Extremity Pain/Injury Time Seen by Provider: 05/09/18 10:43 Chief Complaint (Nursing): Lower Extremity Problem/Injury Chief Complaint (Provider): Leg pain History Per: EMS Additional Complaint(s): Pt BIBA for leg pain. Was discharged from [facility] @ 8 AM today. Past Medical History Vital Signs: Last Vital Signs Temp 98.1 F 05/09/18 09:52 Pulse 65 05/09/18 09:52 Resp 18 05/09/18 09:52 BP 139/83 05/09/18 09:52 Pulse Ox 100 05/09/18 09:52 - Medical History PMH: Anxiety, Arthritis, Benign Prostatic Hyperplasia, Bipolar Disorder, Dementia, HTN, Hypercholesterolemia Denies: Chronic Kidney Disease - Family History Family History: States: Unknown Family Hx - Immunization History Hx Tetanus Toxoid Vaccination: No Hx Influenza Vaccination: No Hx Pneumococcal Vaccination: No - Home Medications Home Medications: Ambulatory Orders Medication Instructions Recorded Aspirin [Ecotrin] 81 mg PO DAILY 12/25/17 Cilostazol [Pletal] 100 mg PO Q12 12/25/17 Lisinopril/Hydrochlorothiazide 1 tab PO DAILY 12/25/17 [Lisinopril-Hctz 20-25 mg Tab] Simvastatin [Zocor] 20 mg PO HS 02/17/18 Tamsulosin [Flomax] 0.4 mg PO HS 02/17/18 Ibuprofen [Motrin Tab] 400 mg PO Q8 PRN #21 tab 02/20/18 - Allergies Allergies/Adverse Reactions: Allergies Allergy/AdvReac Type Severity Reaction Status Date / Time No Known Allergies Allergy Verified 05/10/18 09:08 Physical Exam - Reviewed Nursing Documentation Reviewed: Yes Vital Signs Reviewed: Yes - Physical Exam Appears: Positive for: Well, No Acute Distress (Sleeping) - ECG O2 Sat by Pulse Oximetry: 100 Medical Decision Making Medical Decision Making: Pt refusing to take socks off for physical exam. Disposition - Clinical Impression Clinical Impression: Chronic pain - Disposition Disposition: Left W/O Treatment Disposition Time: 10:55 Condition: UNKNOWN Instructions: Chronic Pain (DC) Forms: [employer] ([employer])
== END 2018-05-09 11:44 | disposition left against medical advice (07) ==
LOC: H.ER 09:45
DX: G89.29 Other chronic pain (principal)

== ENCOUNTER 2018-05-09 12:31 | Emergency (ER) | payer MEDICARE ==
[2018-05-09 12:31] VITALS: BMI 29.9
--- NOTE | 2018-05-09 13:03 | ED PDOC ---
HPI: General Adult Time Seen by Provider: 05/09/18 13:01 Chief Complaint (Nursing): Medical Clearance Chief Complaint (Provider): medical clearance History Per: Patient (62 y/o male undomiciled discharged from ED 30 minutes prior to revisit today. Patient is frequend ED visitor, requesting meals and bed. Has had complaint of leg pain but refuses to allow physical exam.) Past Medical History Reviewed: Historical Data, Nursing Documentation, Vital Signs - Medical History PMH: Anxiety, Arthritis, Benign Prostatic Hyperplasia, Bipolar Disorder, Dementia, HTN, Hypercholesterolemia Denies: Chronic Kidney Disease - Family History Family History: States: Unknown Family Hx - Immunization History Hx Tetanus Toxoid Vaccination: No Hx Influenza Vaccination: No Hx Pneumococcal Vaccination: No - Home Medications Home Medications: Ambulatory Orders Medication Instructions Recorded Aspirin [Ecotrin] 81 mg PO DAILY 12/25/17 Cilostazol [Pletal] 100 mg PO Q12 12/25/17 Lisinopril/Hydrochlorothiazide 1 tab PO DAILY 12/25/17 [Lisinopril-Hctz 20-25 mg Tab] Simvastatin [Zocor] 20 mg PO HS 02/17/18 Tamsulosin [Flomax] 0.4 mg PO HS 02/17/18 Ibuprofen [Motrin Tab] 400 mg PO Q8 PRN #21 tab 02/20/18 - Allergies Allergies/Adverse Reactions: Allergies Allergy/AdvReac Type Severity Reaction Status Date / Time No Known Allergies Allergy Verified 05/09/18 07:25 Review of Systems ROS Statement: Except As Marked, All Systems Reviewed And Found Negative Physical Exam - Reviewed Nursing Documentation Reviewed: Yes Vital Signs Reviewed: Yes - Physical Exam Appears: Positive for: Well, Non-toxic, No Acute Distress Head Exam: Positive for: ATRAUMATIC, NORMAL INSPECTION, NORMOCEPHALIC Skin: Positive for: Normal Color, Warm, DRY Eye Exam: Positive for: EOMI, Normal appearance, PERRL ENT: Positive for: Normal ENT Inspection Neck: Positive for: Normal, Painless ROM Cardiovascular/Chest: Positive for: Regular Rate, Rhythm Respiratory: Positive for: CNT, Normal Breath Sounds Gastrointestinal/Abdominal: Positive for: Normal Exam, Soft Back: Positive for: Normal Inspection Extremity: Positive for: Normal ROM Neurologic/Psych: Positive for: Alert, Oriented Disposition - Clinical Impression Clinical Impression: Homeless single person, Chronic pain of lower extremity, bilateral - Patient ED Disposition Is Patient to be Admitted: No - Disposition Referrals: [facility] [Outside] Disposition: Routine/Home Disposition Time: 13:03 Condition: FAIR Instructions: General (DC), Lower Extremity Muscle Strain (DC)
[2018-05-09 13:07] VITALS: BP 130/80; PULSE 80; RESP 18; TEMP 98.5; O2SAT 98
== END 2018-05-09 13:13 | disposition home or self-care (01) ==
LOC: H.ER 12:31
DX: M79.606 Pain in leg, unspecified (principal); G89.29 Other chronic pain; Z59.0 Homelessness

== ENCOUNTER 2018-05-10 09:04 | Emergency (ER) | payer MEDICARE ==
[2018-05-10 09:04] VITALS: BMI 29.9
[2018-05-10 09:10] VITALS: O2SAT 98
[2018-05-10 09:22] VITALS: BP 110/70; PULSE 74; RESP 20; TEMP 98
--- NOTE | 2018-05-10 09:28 | ED PDOC ---
Lower Extremity Pain/Injury Time Seen by Provider: 05/10/18 09:09 Chief Complaint (Nursing): Lower Extremity Problem/Injury Chief Complaint (Provider): Lower Extremity Problem/Injury History Per: Patient History/Exam Limitations: no limitations Onset/Duration Of Symptoms: Hrs Current Symptoms Are (Timing): Still Present Additional Complaint(s): Patient is a 62 y/o male with a PMHx of HTN, hypercholesterolemia, anxiety, arthritis, BPH, bipolar disorder, and dementia who presents to the ED for evaluation of bilateral leg pain ongoing for several months. Patient is a frequent ED visitor who was discharged from the ED yesterday for the same complaints. Patient arrived to ED in wheelchair, yelling to lie down in a bed and wanting food. Patient would not allow MD to evaluate his legs. Patient denies any recent trauma or falls. PCP: None Provided Past Medical History Reviewed: Historical Data, Nursing Documentation, Vital Signs Vital Signs: Last Vital Signs Temp 98 F 05/10/18 09:21 Pulse 74 05/10/18 09:21 Resp 20 05/10/18 09:21 BP 110/70 05/10/18 09:21 Pulse Ox 98 05/10/18 09:21 - Medical History PMH: Anxiety, Arthritis, Benign Prostatic Hyperplasia, Bipolar Disorder, Dementia, HTN, Hypercholesterolemia Denies: Chronic Kidney Disease - Surgical History Surgical History: No Surg Hx - Family History Family History: States: Unknown Family Hx - Living Arrangements Living Arrangements: Other (Homeless) - Immunization History Hx Tetanus Toxoid Vaccination: No Hx Influenza Vaccination: No Hx Pneumococcal Vaccination: No - Home Medications Home Medications: Ambulatory Orders Medication Instructions Recorded Aspirin [Ecotrin] 81 mg PO DAILY 12/25/17 Cilostazol [Pletal] 100 mg PO Q12 12/25/17 Lisinopril/Hydrochlorothiazide 1 tab PO DAILY 12/25/17 [Lisinopril-Hctz 20-25 mg Tab] Simvastatin [Zocor] 20 mg PO HS 02/17/18 Tamsulosin [Flomax] 0.4 mg PO HS 02/17/18 Ibuprofen [Motrin Tab] 400 mg PO Q8 PRN #21 tab 02/20/18 - Allergies Allergies/Adverse Reactions: Allergies Allergy/AdvReac Type Severity Reaction Status Date / Time No Known Allergies Allergy Verified 05/10/18 09:08 Review of Systems ROS Statement: Except As Marked, All Systems Reviewed And Found Negative Musculoskeletal: Positive for: Leg Pain (bilaterally) Physical Exam - Reviewed Nursing Documentation Reviewed: Yes Vital Signs Reviewed: Yes - Physical Exam Appears: Positive for: Non-toxic, No Acute Distress Head Exam: Positive for: ATRAUMATIC, NORMAL INSPECTION, NORMOCEPHALIC Skin: Positive for: Normal Color, Warm, Dry Eye Exam: Positive for: Normal appearance, EOMI, PERRL Neck: Positive for: Normal, Painless ROM, Supple Cardiovascular/Chest: Positive for: Regular Rate, Rhythm. Negative for: Murmur Respiratory: Positive for: Normal Breath Sounds. Negative for: Respiratory Distress Gastrointestinal/Abdominal: Positive for: Normal Exam Back: Positive for: Normal Inspection. Negative for: L CVA Tenderness, R CVA Tenderness, Vertebral Tenderness Extremity: Positive for: Normal ROM Neurologic/Psych: Positive for: Alert, Oriented. Negative for: Motor/Sensory Deficits - ECG O2 Sat by Pulse Oximetry: 98 (RA) Pulse Ox Interpretation: Normal Medical Decision Making Medical Decision Making: Time: 919 Impression: Homeless and single with chronic pain of bilateral, lower extremities Patient refused to take off shoes and socks despite complaining of leg pain. Scribe Attestation: Documented by Crispin Jensen, acting as a scribe for Sera Shaver MD. Provider Scribe Attestation: All medical record entries made by the Scribe were at my direction and personally dictated by me. I have reviewed the chart and agree that the record accurately reflects my personal performance of the history, physical exam, medical decision making, and the department course for this patient. I have also personally directed, reviewed, and agree with the discharge instructions and disposition. Disposition - Clinical Impression Clinical Impression: Chronic pain - Disposition Referrals: [facility] [Outside] Disposition: Routine/Home Disposition Time: 09:13 Condition: STABLE Instructions: Chronic Pain (DC) Forms: [employer] (Malay)
== END 2018-05-10 09:28 | disposition home or self-care (01) ==
LOC: H.ER 09:04
DX: M79.605 Pain in left leg (principal); G89.29 Other chronic pain; F03.90 Unspecified dementia, unspecified severity, without behavioral disturbance, psychotic disturbance, mood disturbance, and anxiety; Z86.59 Personal history of other mental and behavioral disorders; I10 Essential (primary) hypertension; N40.0 Benign prostatic hyperplasia without lower urinary tract symptoms; Z59.0 Homelessness; Z91.14 Patient's other noncompliance with medication regimen

== ENCOUNTER 2018-05-10 11:55 | Emergency (ER) | payer MEDICARE ==
[2018-05-10 11:56] VITALS: BMI 29.9
--- NOTE | 2018-05-10 12:39 | ED PDOC ---
Lower Extremity Pain/Injury Time Seen by Provider: 05/10/18 12:27 Chief Complaint (Nursing): Lower Extremity Problem/Injury Chief Complaint (Provider): Lower Extremity Problem/Injury History Per: Patient History/Exam Limitations: no limitations Onset/Duration Of Symptoms: Other (chronic) Current Symptoms Are (Timing): Still Present Additional Complaint(s): 62 year old male, well known to ED staff for bed seeking behavior, presents for evaluation of chronic bilateral lower extremity pain. He states that symptoms are unchanged from the past. Patient took no medications for pain prior to arrival. He was seen in this ED three times today as well as another three times yesterday. He is uncooperative with ED staff and is demanding a bed and a sandwich on arrival. Patient refused vitals signs and physical exam. Denies recent falls and trauma. PMD: none provided Past Medical History Reviewed: Historical Data, Nursing Documentation, Vital Signs - Medical History PMH: Anxiety, Arthritis, Benign Prostatic Hyperplasia, Bipolar Disorder, Dementia, HTN, Hypercholesterolemia - Family History Family History: States: Unknown Family Hx - Living Arrangements Living Arrangements: Other (homeless) - Home Medications Home Medications: Ambulatory Orders Medication Instructions Recorded RX: Aspirin [Ecotrin] 81 mg PO DAILY 12/25/17 RX: Cilostazol [Pletal] 100 mg PO Q12 12/25/17 RX: Lisinopril/Hydrochlorothiazide 1 tab PO DAILY 12/25/17 [Lisinopril-Hctz 20-25 mg Tab] RX: Simvastatin [Zocor] 20 mg PO HS 02/17/18 RX: Tamsulosin [Flomax] 0.4 mg PO HS 02/17/18 RX: Ibuprofen [Motrin Tab] 400 mg PO Q8 PRN #21 tab 02/20/18 - Allergies Allergies/Adverse Reactions: Allergies Allergy/AdvReac Type Severity Reaction Status Date / Time No Known Allergies Allergy Verified 05/10/18 09:08 Review of Systems ROS Statement: Except As Marked, All Systems Reviewed And Found Negative Musculoskeletal: Positive for: Leg Pain (chronic bilateral lower extremity pain) Physical Exam - Reviewed Nursing Documentation Reviewed: Yes Vital Signs Reviewed: Yes - Physical Exam Comments: GENERAL APPEARANCE: Patient is awake, alert, oriented x 3, in no acute distress. Ambulatory, (+) Steady gait with cane. EYES: Normal appearance. NECK: Supple. CHEST AND RESPIRATORY: no evidence of respiratory distress. Respirations even and non-labored, speaking in full sentences. Patient refused physical examination. Medical Decision Making Medical Decision Makin:27 Clinical Impression: chronic pain and malingering Initial Plan: Patient requires no immediate intervention in the ED at this time. He was advised to follow up with clinic. Based on history, exam and diagnostic results, plan will be for outpatient follow up. Return to the emergency room at any time for any new or worsening symptoms. I have given the patient opportunity to ask any additional questions. Scribe Attestation: Documented by Erica Yanes, acting as a scribe for Annamarie Lees PA-C Provider Scribe Attestation: All medical record entries made by the Scribe were at my direction and personally dictated by me. I have reviewed the chart and agree that the record accurately reflects my personal performance of the history, physical exam, medical decision making, and the department course for this patient. I have also personally directed, reviewed, and agree with the discharge instructions and disposition. Disposition - Clinical Impression Clinical Impression: Chronic pain, Malingering, Homelessness - Patient ED Disposition Is Patient to be Admitted: No Counseled Patient/Family Regarding: Studies Performed, Diagnosis, Need For Followup - Disposition Referrals: [facility] [Outside] Disposition: Routine/Home Disposition Time: 12:35 Condition: STABLE Additional Instructions: The emergency medical care you received today was directed at your acute symptoms. If you were prescribed any medication, please fill it and take as directed. It may take several days for your symptoms to resolve. Return to the Emergency Department if your symptoms worsen, do not improve, or if you have any other problems. Please contact your doctor in 2 days for re-evaluation and follow up / or call one of the physicians/clinics you have been referred to that are listed on the Patient Visit Information form that is included in your discharge packet. Bring any paperwork you were given at discharge with you along with any medications you are taking to your follow up visit. Our treatment cannot replace ongoing medical care by a primary care provider (PCP) outside of the emergency department. Instructions: Chronic Pain (DC) Forms: [employer] (Com[place]an) Print Language: CENTRAL AFRICAN - POA Present On Arrival: None
== END 2018-05-10 12:46 | disposition home or self-care (01) ==
LOC: H.ER 11:55
DX: M79.605 Pain in left leg (principal); M79.604 Pain in right leg; G89.29 Other chronic pain; F03.90 Unspecified dementia, unspecified severity, without behavioral disturbance, psychotic disturbance, mood disturbance, and anxiety; Z86.59 Personal history of other mental and behavioral disorders; I10 Essential (primary) hypertension; N40.0 Benign prostatic hyperplasia without lower urinary tract symptoms; Z59.0 Homelessness; Z76.5 Malingerer [conscious simulation]

== ENCOUNTER 2018-05-10 15:26 | Emergency (ER) | payer MEDICARE ==
[2018-05-10 15:27] VITALS: BMI 29.9
== END 2018-05-10 18:48 | disposition left against medical advice (07) ==
LOC: H.ER 15:26
DX: Z02.89 Encounter for other administrative examinations (principal)